=== PATIENT | female | born 2005 | race Caucasian/White ===

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

== ENCOUNTER 2023-01-03 21:52 | Emergency (ER) | payer OTHER ==
--- OUTSIDE RECORDS SUMMARY | 2023-01-03 22:02 | XMS REPORT | Continuity of Care Document ---
:2005 Author Organization [facility] t Address [address] [facility]. [address] [place] [address] Care Team Providers Name Role Phone Spring RIZVI, [facility] Primary Care Physician [phone] RODOLFO CASTILLO Attending Clinician Unavailable DEBORAH LEÓN Attending Clinician Unavailable GARRETT CONLEY Attending Clinician Unavailable GARRETT CONLEY Attending Clinician Unavailable SMITHA CAST Attending Clinician Unavailable Smitha Cast DO Attending Clinician SANYA TO Attending Clinician Unavailable Sanya To DO Attending Clinician Deborah Talley Attending Clinician Doctor Unassigned, [place] Attending Clinician Unavailable Katie HEALY Attending Clinician Unavailable Katie Danielson Attending Clinician HALLEY FREITAS Attending Clinician Unavailable Halley Freitas MD Attending Clinician Pob, [facility] Main Attending Clinician Unavailable Joy Baxter MD Attending Clinician YASMANY NATH Attending Clinician Unavailable Nurse, [facility] Attending Clinician Unavailable Yasmany Nath MD Attending Clinician Abel Frazier CRNA Attending Clinician Nitin Curiel MD Attending Clinician ANGELA HICKS Attending Clinician Unavailable Angela Hicks MD Attending Clinician Ultrasound, Ang-Mfm Attending Clinician Unavailable Ina Joya MD, Banerjee Attending Clinician [phone] INA JOYA, BANERJEE Attending Clinician Unavailable NEVAREZ, ELEANOR CAM Attending Clinician Unavailable Yoni RIZVI, Eleanor Cam Attending Clinician Lab, Ang - Db Attending Clinician Unavailable Omagcarinei RIVET PASSER, Vani Attending Clinician Tom KING, [place] Attending Clinician Unavailable Charles RIVET PASSERViky Treviño Attending Clinician Mauricio RIVET PASSERHo Treviño Attending Clinician HO MARTÍNEZ Attending Clinician Unavailable RONNI MORRELL Attending Clinician Unavailable Only, Ang Db Test Attending Clinician Unavailable Cale Bates MD Attending Clinician Ronni Morrell PA-C Attending Clinician Rubén Vizcaino Attending Clinician RUBÉN VIZCAINO Attending Clinician Unavailable 2, [facility] Attending Clinician Unavailable Moustapha Patton Attending Clinician Cookie Reid Attending Clinician Carlos Theodore MD Attending Clinician Joshua Kitchen MD Attending Clinician Scotty Farnsworth Attending Clinician Lab, Adc Fam Pob I Attending Clinician Unavailable Unknown, Attending Attending Clinician Unavailable UNKNOWN, ATTENDING Attending Clinician Unavailable Only, Adc Test Attending Clinician Unavailable JOY BAXTER Attending Clinician Unavailable Benjamin KING, Fátima Wright Attending Clinician Unavailable Dayday Vines Attending Clinician DAYDAY RIVERO Attending Clinician Unavailable ELEANOR NEVAREZ Admitting Clinician Unavailable Katie HEALY Admitting Clinician Unavailable YASMANY NATH Admitting Clinician Unavailable Yasmany Nath MD Admitting Clinician ANGELA HICKS Admitting Clinician Unavailable Angela Hicks MD Admitting Clinician Eleanor Nevarez MD Admitting Clinician Payers Payer Name Policy Type Policy Number Effective Date Expiration Date S matthias [facility] [id number] 2021 00:00:00 [employer] [place] [facility] [id number] 2020 OF STATE 00:00:00 [employer] [place] [id number] 2019 00:00:00 Problems Condition Condition Condition Status Onset Resolution Last Treating Co mments Source Name Details Category Date Date Treatment Clinician Date Abscess of Abscess of Disease Active U nivers Bartholin' Bartholin' 2-28 it y of s gland s gland 00:00: [place] [facility] BMI BMI Disease Active 2022- Univers 30.0-30.9, 30.0-30.9, 2-28 it y of adult adult 00:00: [place] [facility] Need for Need for Disease Active Unive rs vaccinatio vaccinatio 2-28 it y of n n 00:00: [place] [facility] Presence Presence Disease Active Unive rs of of 8-26 ity of subdermal subdermal 00:00: Marzena gil contracept contracept 00 Me dical chriss device chriss device Br anch BMI BMI Disease Active 2021-0 Univers 28.0-28.9, 28.0-28.9, 7-31 it y of adult adult 00:00: [place] [facility] BMI BMI Disease Active 2021-0 Univers 28.0-28.9, 28.0-28.9, 7-31 it y of adult adult 00:00: [place] [facility] Disease Active U nivers depression depression 7-29 it y of 00:00: [place] [facility] Encounter Encounter Disease Active Uni vers for for 7-12 ity of initial initial 00:00: [place] prescripti prescripti 00 Me dical on of on of [place] implantabl implantabl e e subdermal subdermal contracept contracept chriss chriss Vaginal Vaginal Disease Active Univers discharge discharge 7-12 ity of 00:00: [place] [facility] Liveborn Liveborn Disease Active Unive rs infant, of , of 6-14 it y of [place] born in born in [facility] by vaginal by vaginal delivery delivery Gestationa Gestationa Disease Active U nivers l l 6-13 ity of hypertensi hypertensi [place] on, Medical antepartum antepartum Br anch Low back Low back Disease Active Unive rs pain pain 5-18 ity of during during 00:: [place] , , 00 Me dical antepartum antepartum Br anch Pelvic Pelvic Disease Active Univers pressure pressure 5-08 ity of in in 00:: [place] , , 00 Me dical antepartum antepartum Br anch , third , third trimester trimester Anemia of Anemia of Disease Active Uni vers mother in mother in 5-08 it[place] , , [place] ante[place] antepartum 00 [facility] Supervisio Supervisio Disease Active U nivers n of other n of other 4-08 it y of normal normal 00:00: [place] 00 [facility] History of History of Disease Active U nivers chlamydia chlamydia 2-09 ity of 00:00: [place] [facility] COVID-19 COVID-19 Disease Active Unive rs affecting affecting 1-12 ity of 00:00: [place] in second in second 00 [facility] trimester trimester Bran ch 12 WK 12 WK Diagnosis Active 2020-112022-02-14 Mem oria PREG, PREG, 2-18 09:31:00 l CRAMPING CRAMPING 00:00: Arnulfo n Active 10/20/2021 [facility] [place] Vitamin D Vitamin D Disease Active Uni vers deficiency deficiency 8-24 it y of 00:00: [address] Edema Edema Disease Active Univers 8-11 ity of 00:00: [place] 00 [facility] Branch Edema Edema Disease Active Univers 8-11 ity of 00:00: [place] 00 [facility] Branch History of Past Illness Condition Condition Condition Status Onset Resolution Last Treating Co mments Source Name Details Category Date Date Treatment Clinician Date Unspecifie Unspecifi Problem 2020-112021-10-22 2021-10-22 Memoria d ed 2-18 23:10:23 23:10:23 l abdominal abdominal 21:24: Herm jose pain pain 00 10/20/2021 10/22/2021 [facility] [place] Allergies, Adverse Reactions, Alerts Allergy Allergy Status Severity Reaction(s) Onset Inactive Treating Comm ents Source Name Type Date Date Clinician SULFA Drug Active High Anaphylaxis Unive rs (SULFONA Class 4-04 ity of MIDE 00:00: [place] ANTIBIOT 00 Medical ICS) Branch Sulfa Propensi Active Anaphylaxis Uni vers (Sulfona ty to 4-04 ity of mide adverse 00:00: [place] Antibiot reaction 00 Medica l ics) s Branch Social History Social Habit Start Date Stop Date Quantity Comments Source History SDOH University o f Alcohol Std [place] Medical Drinks Branch History SDOH University o f Alcohol Binge [place] [facility] al Branch History SDOH University o f Alcohol Comment [place] Med ical Branch Exposure to 2022-12-21 2022-12-31 Not sure University of SARS-CoV-2 00:00:00 09:10:00 [facility] (event) Branch Alcohol intake 2022-12-31 2022-12-31 Lifetime University of 00:00:00 00:00:00 non-drinker [facility] (finding) Branch Tobacco use and 2022-06-28 2022-06-28 Smokeless tobacco Un iversity of exposure 00:00:00 00:00:00 non-user [place] [facility] History SDOH 2021-08-20 2021-08-20 1 University o f Alcohol Frequency 00:00:00 00:00:[facility] [place] Sex Assigned At [birth year] Universit y of 00:00:00 00:00:00 [facility] Smoking Status Start Date Stop Date Source Social History [facility] Medications Ordered Filled Start Stop Current Ordering Indication Dosage Frequency Signature Comments Components Source Medication Medication Date Date Medication? Clinician (SIG) Name Name acetaminoph Yes Take by Uni vers en (TYLENOL 2-28 mouth. ity of ORAL) 10:55: [place] [address] Medical Branch acetaminoph Yes Take by Uni vers en (TYLENOL 2-28 mouth. ity of ORAL) 10:55: [place] [address] Medical Branch IBUPROFEN 2022- No 1800mg Take 1,800 Univers ORAL 2-21 02-21 mg by ity of 08:49: 00:00 mouth [place] 07 :00 daily. Medical Branch IBUPROFEN 2022- No 1800mg Take 1,800 Univers ORAL 2-21 02-21 mg by ity of 08:49: 00:00 mouth [place] 07 :00 daily. Medical Branch amoxicillin 2022- No 1{tbl} 1 tablet, Univers -clavulanat 2-15 02-15 Oral, ity of e 14:45: 13:54 ONCE, 1 [place] (AUGMENTIN) 00 :00 dose, On Medi eric 875-125 mg Fri Branch per tablet 12/18/22 at 1 tablet 0845, Routine
Reason for Anti-Infec tive: Documented Infection< br>Documen cindy Infection Site: Pelvic
Duration of Therapy: 7 days HYDROcodone 2022- No 1{tbl} 1 tablet, Univers -acetaminop 2-15 -15 Oral, ity of hen (NORCO 13:30: 13:36 ONCE, 1 [place] 5) 5-325 mg 00 :00 dose, On Medi eric tablet 1 Wed Branch tablet 12/18/22 at 0730, MICHAEL amoxicillin Yes [id number] 1{tbl} Take 1 Univers -clavulanat 2-15 tablet by ity of e 875-125 00:00: mouth [place] mg per 00 every 12 Medical tablet (twelve) Branch hours. amoxicillin 2022-2022- No [id number] 1{tbl} Take 1 Univers -clavulanat 2-15 -28 tablet by it y of e 875-125 00:00: 00:00 mouth [place] mg per 00 :00 every 12 Medical tablet (twelve) Branch hours. amoxicillin 2022- No [id number] 1{tbl} Take 1 Univers -clavulanat 2-15 02-28 tablet by it y of e 875-125 00:00: 00:00 mouth [place] mg per 00 :00 every 12 Medical tablet (twelve) Branch hours. cefixime 2022- Yes [id number] 400mg Take 1 U nivers 400 mg 2-14 12-25 capsule by ity of capsule 00:00: 05:59 mouth in [place] 00 :00 the Medical morning Branch and 1 capsule in the evening. Do all this for 7 days. clindamycin 2022- Yes [id number] 300mg Take 2 Univers 150 mg 2-14 - capsules ity of capsule 00:00: 05:59 by mouth 4 [place] 00 :00 (four) Medical times Branch daily for 7 days. cefixime 2022- No [id number] 400mg Take 1 U nivers 400 mg 2-12-18 capsule by ity of capsule 00:00: 00:00 mouth in [place] 00 :00 the Medical morning Branch and 1 capsule in the evening. Do all this for 7 days. clindamycin 2022- No [id number] 300mg Take 2 Univers 150 mg 2-14 - capsules ity of capsule 00:00: 00:00 by mouth 4 [place] 00 :00 (four) Medical times [place] daily for 7 days. methylPREDN 2022-0 Yes [id number] Take by [employer] ISolone 2-13 [id number] mouth ity of (MEDROL, 00:00: SEE-INSTRU [place] ALEXANDRA,) 4 mg 00 CTIONS. Medica l tablets follow Branch package directions SERTraline 2022-0 Yes [id number] 25mg Take 1 Univers 25 mg 2-13 tablet by ity of tablet 00:00: mouth in [place] 00 the Medical morning. Branch methylPREDN 2022-0 Yes [id number] Take by Univers ISolone 2-13 [id number] mouth ity of (MEDROL, 00:00: SEE-INSTRU [place] ALEXANDRA,) 4 mg 00 CTIONS. Medica l tablets follow Branch package directions SERTraline 2022-0 Yes [id number] 25mg Take 1 Univers 25 mg 2-13 tablet by ity of tablet 00:00: mouth in [place] 00 the Medical morning. Branch methylPREDN 2022-0 Yes [id number] Take by Univers ISolone 2-13 [id number] mouth ity of (MEDROL, 00:00: SEE-INSTRU [place] ALEXANDRA,) 4 mg 00 CTIONS. Medica l tablets follow Branch package directions SERTraline 3-0 Yes [id number] 25mg Take 1 Univers 25 mg 2-13 tablet by ity of tablet 00:00: mouth in [place] the Medical morning. Branch methylPREDN 2022-0 Yes [id number] Take by Univers ISolone 12-16 [id number] mouth ity of (MEDROL, 00:00: SEE-INSTRU [place] ALEXANDRA,) 4 mg 00 CTIONS. Medica l tablets follow Branch package directions SERTraline 2022-0 Yes [id number] 25mg Take 1 Univers 25 mg 2-13 tablet by ity of tablet 00:00: mouth in [place] the Medical morning. Branch SERTraline 2022-0 Yes [id number] 25mg Take 1 Univers 25 mg 2-13 tablet by ity of tablet 00:00: mouth in [place] the Medical morning. Branch SERTraline 2022-0 Yes [id number] 25mg Take 1 Univers 25 mg 2-13 tablet by ity of tablet 00:00: mouth in [place] the Medical morning. Branch methylPREDN 2022-0 2023- No [id number] Take by Univers ISolone 12-16 [id number] mouth ity of (MEDROL, 00:00: 00:00 [place]IN[place] ALEXANDRA,) 4 mg 00 :00 CTIONS. Medica l tablets follow Branch package directions methylPREDN 2022-0 3- No [id number] Take by Univers ISolone 12-16 [id number] mouth ity of (MEDROL, 00:00: 00:00 [place]INSTRU [place] ALEXANDRA,) 4 mg 00 :00 CTIONS. Medica l tablets follow Branch package directions IBUPROFEN 3-0 Yes 1800mg Take 1,800 Univers ORAL 1-26 mg by ity of 16:57: mouth [place] 03 daily. Medical Branch IBUPROFEN 2023-0 Yes 1800mg Take 1,800 Univers ORAL 1-26 mg by ity of 16:57: mouth [place] 03 daily. Medical Branch IBUPROFEN 3-0 Yes 1800mg Take 1,800 Univers ORAL 1-26 mg by ity of 16:57: mouth [place] 03 daily. Medical Branch IBUPROFEN 2023-0 Yes 1800mg Take 1,800 Univers ORAL 1-26 mg by ity of 16:57: mouth [place] 03 daily. Medical Branch IBUPROFEN 2022-0 Yes 1800mg Take 1,800 Univers ORAL 1-26 mg by ity of 16:57: mouth [place] 03 daily. Medical Branch IBUPROFEN 2022-0 Yes 1800mg Take 1,800 Univers ORAL 1-26 mg by ity of 16:57: mouth [place] 03 daily. Medical Branch IBUPROFEN 2022-0 Yes 1800mg Take 1,800 Univers ORAL 1-26 mg by ity of 16:57: mouth [place] 03 daily. Medical Branch IBUPROFEN 2022-0 Yes 1800mg Take 1,800 Univers ORAL 1-26 mg by ity of 13:22: mouth [place] 11 daily. [facility] Branch IBUPROFEN 2022-0 Yes 1800mg Take 1,800 Univers ORAL 1-26 mg by ity of 13:22: mouth [place] 11 daily. Medical Branch predniSONE 2022-0 Yes [id number] 10mg Take 1 Univers 10 mg 1-26 [id number] tablet by ity of tablet 00:00: mouth in [place] 00 the Medical morning. Branch meloxicam 2022-0 Yes [id number] 7.5mg Take 1 Univers 7.5 mg 1-26 [id number] tablet by ity of tablet 00:00: mouth in [place] 00 the Medical morning. Branch predniSONE 2022-0 Yes [id number] 10mg Take 1 Univers 10 mg 1-26 [id number] tablet by ity of tablet 00:00: mouth in [place] 00 the Medical morning. Branch meloxicam 2022-0 Yes [id number] 7.5mg Take 1 Univers 7.5 mg 1-26 [id number] tablet by ity of tablet 00:00: mouth in [place] 00 the Medical morning. Branch predniSONE 3-0 Yes [id number] 10mg Take 1 Univers 10 mg 1-26 [id number] tablet by ity of tablet 00:00: mouth in [place] 00 the Medical morning. Branch meloxicam 2022-0 Yes [id number] 7.5mg Take 1 Univers 7.5 mg 1-26 [id number] tablet by ity of tablet 00:00: mouth in [place] 00 the Medical morning. Branch predniSONE 3-0 Yes [id number] 10mg Take 1 Univers 10 mg 1-26 [id number] tablet by ity of tablet 00:00: mouth in [place] 00 the Medical morning. Branch meloxicam 2023-0 Yes [id number] 7.5mg Take 1 Univers 7.5 mg - [id number] tablet by ity of tablet 00:00: mouth in [place] 00 the Medical morning. Branch meloxicam 0 Yes [id number] 7.5mg Take 1 Univers 7.5 mg - [id number] tablet by ity of tablet 00:00: mouth in [place] 00 the Medical morning. Branch meloxicam 2022-0 Yes [id number] 7.5mg Take 1 Univers 7.5 mg - [id number] tablet by ity of tablet 00:00: mouth in [place] 00 the Medical morning. Branch meloxicam 0 Yes [id number] 7.5mg Take 1 Univers 7.5 mg - [id number] tablet by ity of tablet 00:00: mouth in [place] 00 the Medical morning. Branch meloxicam Yes [id number] 7.5mg Take 1 Univers 7.5 mg - [id number] tablet by ity of tablet 00:00: mouth in [place] 00 the Medical morning. Branch meloxicam Yes [id number] 7.5mg Take 1 Univers 7.5 mg 11-28 [id number] tablet by ity of tablet 00:00: mouth in [place] 00 the Medical morning. Branch meloxicam 2022- No [id number] 7.5mg Take 1 Univers 7.5 mg 11-28 [id number] tablet by ity o f tablet 00:00: 00:00 mouth in [place] 00 :00 the Medical morning. Branch meloxicam 2022- No [id number] 7.5mg Take 1 Univers 7.5 mg 11-28 [id number] tablet by ity o f tablet 00:00: 00:00 mouth in [place] 00 :00 the Medical morning. Branch predniSONE 2022-2022- No [id number] 10mg Take 1 Univers 10 mg 11-28 [id number] tablet by ity of tablet 00:00: 00:00 mouth in [place] 00 :00 the Medical morning. Branch predniSONE 2022-2022- No [id number] 10mg Take 1 Univers 10 mg 11-28 [id number] tablet by ity of tablet 00:00: 00:00 mouth in [place] 00 :00 the Medical morning. Branch predniSONE 2022-0 2022- No 40mg 40 mg, Univ ers (DELTASONE) -11-23 Oral, ity of tablet 40 00:30: 00:37 ONCE, 1 [place] mg 00 :00 dose, On Medical Fri Branch 11/22/22 at 1830, MICHAEL predniSONE 2022-0 Yes [id number] 1 PO BID x Univers 20 mg 1-20 4 days ity of tablet 00:00: [place] 00 [facility] Branch predniSONE 2022-0 Yes [id number] 1 PO BID x Univers 20 mg 1-20 4 days ity of tablet 00:00: [place] 00 [facility] Branch predniSONE 2022-0 Yes [id number] 1 PO BID x Univers 20 mg 1-20 4 days ity of tablet 00:00: [place] 00 [facility] predniSONE 2022-0 Yes [id number] 1 PO BID x Univers 20 mg 1-20 4 days ity of tablet 00:00: [place] 00 [facility] predniSONE 2022-0 Yes [id number] 1 PO BID x Univers 20 mg 1-20 4 days ity of tablet 00:00: [place] 00 [facility] predniSONE 2022-0 2022- No [id number] 1 PO BID x Univers 20 mg 1-20 -13 4 days ity of tablet 00:00: 00:00 [place] 00 :00 [facility] predniSONE 2022-0 2022- No [id number] 1 PO BID x Univers 20 mg 1-20 - 4 days ity of tablet 00:00: 00:00 [place] 00 :00 [facility] ibuprofen 2022-0 Yes TAKE 1 Univer s 600 mg 1-16 TABLET BY ity of tablet 00:00: MOUTH 00 TWICE A Medical DAY Branch NEEDED ibuprofen 2022-0 Yes TAKE 1 Univer s 600 mg 1-16 TABLET BY ity of tablet 00:00: MOUTH 00 TWICE A Medical DAY Branch NEEDED iopamidol 2022-2022- No [id number] 78mL 78 mL, U nivers (ISOVUE -07 04- Intravenou ity o f 370-500 mL) 23:30: 22:45 s, ONCE, 1 [place] injection 00 :00 dose, On Medica l 78 mL 11/11/22 Branch at 1730, Routine TAKE 1 2022-0 No TABLET BY 1-09 MOUTH EVERY 00:00: DAY IN THE 00 MORNING SERTRALINE 2023-0 No HCL 25 MG 1-09 TABS 00:00: 00 TAKE 1 3-0 No 500 TABLET BY 1-08 MOUTH EVERY 00:00: 12 HOURS 00 FOR 7 DAYS SERTraline 2021-0 Yes [id number] 25mg Take 1 U nivers 25 mg 8-26 tablet by ity of tablet 00:00: mouth in [place] 00 the Medical morning. Branch SERTraline 2021-0 Yes [id number] 25mg Take 1 U nivers 25 mg 8-26 tablet by ity of tablet 00:00: mouth in [place] 00 the Medical morning. Branch SERTraline 2021-0 Yes [id number] 25mg Take 1 U nivers 25 mg 8-26 tablet by ity of tablet 00:00: mouth in [place] 00 the Medical morning. Branch SERTraline 2021-0 Yes [id number] 25mg Take 1 U nivers 25 mg 8-26 tablet by ity of tablet 00:00: mouth in [place] 00 the Medical morning. Branch SERTraline 2021-0 Yes [id number] 25mg Take 1 U nivers 25 mg 8-26 tablet by ity of tablet 00:00: mouth in [place] 00 the Medical morning. Branch SERTraline 2021-0 Yes [id number] 25mg Take 1 U nivers 25 mg 8-26 tablet by ity of tablet 00:00: mouth in [place] 00 the Medical morning. Branch SERTraline 2021-0 Yes [id number] 25mg Take 1 U nivers 25 mg 8-26 tablet by ity of tablet 00:00: mouth in [place] 00 the Medical morning. Branch SERTraline 2021-0 3- No [id number] 25mg Take 1 Univers 25 mg 8-26 01-26 tablet by ity of tablet 00:00: 00:00 mouth in [place] 00 :00 the Medical morning. Branch SERTraline 2021-0 3- No [id number] 25mg Take 1 Univers 25 mg 8-26 01-26 tablet by ity of tablet 00:00: 00:00 mouth in [place] 00 :00 the Medical morning. Branch etonogestre 2021-0 2- No [id number] 68mg Univers L 06-04 ity of (NEXPLANON) 18:15: 17:02 [place] implant 68 00 :00 Medical mg Branch etonogestre 2021- No [id number] 68mg 68 mg, Univers L 06-04 Subdermal, ity of (NEXPLANON) 18:15: 17:02 [place]CE, 1 [place] 68 00 :00 dose, On Medic al mg 06/04/22 Branch at 1315, Routine
Use approved by: [employer] etonogestre 2021- No [id number] 68mg Univers L 06-04 ity of (NEXPLANON) 18:15: 17:02 [place] implant 68 00 :00 Medical mg [place] etonogestre 2021- No [id number] 68mg 68 mg, Univers L 06-04 Subdermal, ity of (NEXPLANON) 18:15: 17:02 [place]CE, 1 [place] 00 :00 dose, On Medic al mg e 06/04/22 Branch at 1315, Routine
Use approved by: [employer] SERTraline Yes [id number] 25mg Take 1 U nivers 25 mg 7-29 tablet by ity of tablet 00:00: mouth in [place] 00 the Medical morning. [place] SERTraline Yes [id number] 25mg Take 1 U nivers 25 mg 7-29 tablet by ity of tablet 00:00: mouth in [place] 00 the Medical morning. Branch SERTraline Yes [id number] 25mg Take 1 U nivers 25 mg 7-29 tablet by ity of tablet 00:00: mouth in [place] 00 the Medical morning. Branch SERTraline 2021- No [id number] 25mg Take 1 Univers 25 mg 7-29 - tablet by ity of tablet 00:00: 00:00 mouth in [place] 00 :00 the Medical morning. [place] docusate 2021- No [id number] 200mg Take 2 Univers 100 mg 04-17 102 capsules ity of capsule 00:00: 00:00 by mouth [place] 00 :00 once daily Medical as needed Branch for Constipati on. ibuprofen 2021- No [id number] 600mg Take 1 Univers 600 mg 04-17 102 tablet by ity of tablet 00:00: 00:00 mouth [place] 00 :00 every 6 Medical (six) Branch hours as needed (Pain). Take with food or milk. docusate 2- No [id number] 200mg Take 2 Univers 100 mg 04-17 102 capsules ity of capsule 00:00: 00:00 by mouth [place] 00 :00 once daily Medical as needed Branch for Constipati on. ibuprofen 2021- No [id number] 600mg Take 1 Univers 600 mg 04-17 102 tablet by ity of tablet 00:00: 00:00 mouth [place] 00 :00 every 6 Medical (six) Branch hours as needed (Pain). Take with food or milk. ferrous Yes [id number] 325mg Take 1 Un sheldon sulfate 3-30 tablet by ity of (IRON, 00:00: mouth [place] FERROUS 00 every Medical SULFATE,) other day. Bran ch 325 mg (65 mg iron) tablet ferrous Yes [id number] 325mg Take 1 Un sheldon sulfate 3-30 tablet by ity of (IRON, 00:00: mouth [place] FERROUS 00 every Medical SULFATE,) other day. Bran ch 325 mg (65 mg iron) tablet ferrous Yes [id number] 325mg Take 1 Un sheldon sulfate 3-30 tablet by ity of (IRON, 00:00: mouth [place] FERROUS 00 every Medical SULFATE,) other day. Bran ch 325 mg (65 mg iron) tablet ferrous Yes [id number] 325mg Take 1 Un sheldon sulfate 3-30 tablet by ity of (IRON, 00:00: mouth [place] FERROUS 00 every Medical SULFATE,) other day. Bran ch 325 mg (65 mg iron) tablet ferrous Yes [id number] 325mg Take 1 Un sheldon sulfate 3-30 tablet by ity of (IRON, 00:00: mouth [place] FERROUS 00 every Medical SULFATE,) other day. Bran ch 325 mg (65 mg iron) tablet ferrous Yes [id number] 325mg Take 1 Un sheldon sulfate 3-30 tablet by ity of (IRON, 00:00: mouth [place] FERROUS 00 every Medical SULFATE,) other day. Bran ch 325 mg (65 mg iron) tablet ferrous Yes [id number] 325mg Take 1 Un sheldon sulfate 3-30 tablet by ity of (IRON, 00:00: mouth [place] FERROUS 00 every Medical SULFATE,) other day. Bran ch 325 mg (65 mg iron) tablet ferrous Yes [id number] 325mg Take 1 Un sheldon sulfate 3-30 tablet by ity of (IRON, 00:00: mouth [place] FERROUS 00 every Medical SULFATE,) other day. Bran ch 325 mg (65 mg iron) tablet ferrous Yes [id number] 325mg Take 1 Un sheldon sulfate 3-30 tablet by ity of (IRON, 00:00: mouth [place] FERROUS 00 every Medical SULFATE,) other day. Bran ch 325 mg (65 mg iron) tablet ferrous Yes [id number] 325mg Take 1 Un sheldon sulfate 3-30 tablet by ity of (IRON, 00:00: mouth [place] FERROUS 00 every Medical SULFATE,) other day. Bran ch 325 mg (65 mg iron) tablet ferrous 2022- No [id number] 325mg Take 1 U nivers sulfate 3-30 - tablet by ity of (IRON, 00:00: 00:00 mouth [place] FERROUS 00 :00 every Medical SULFATE,) other day. Bran ch 325 mg (65 mg iron) tablet ferrous 2022- No [id number] 325mg Take 1 U nivers sulfate 3-30 - tablet by ity of (IRON, 00:00: 00:00 mouth [place] FERROUS 00 :00 every Medical SULFATE,) other day. Bran ch 325 mg (65 mg iron) tablet ascorbic 2021- No [id number] 500mg Take 1 Univers acid, 3-02 07- tablet by ity of vitamin C, 00:00: 00:00 mouth [place] 500 mg 00 :00 every Medical tablet other day. Branch Take with iron ascorbic 2021- No [id number] 500mg Take 1 Univers acid, 3-30 - tablet by ity of vitamin C, 00:00: 00:00 mouth [place] 500 mg 00 :00 every Medical tablet other day. Branch Take with iron Potassium 2020-11 No Notes: Memori a Chloride 2-18 (Same as: l 20:25: K-Dur 20) [place] "Do Not Crush" Give with food and full glass of water For patients unable to swallow tablet, dissolve in one half glass of water. Allow about 2 minutes for the tablets to disintegra te. Stir before giving to prepare slurry and administer . Please exclude Patient s with feeding tube less than 14 [place] (Dobhoff, J-tube etc) and pediatric and patients. Potassium 2020-11 No Notes: Memori a Chloride 2-18 (Same as: l 20:25: K-Dur 20) [place] 00 "Do Not Crush" Give with food and full glass of water For patients unable to swallow tablet, dissolve in one half glass of water. Allow about 2 minutes for the tablets to disintegra te. Stir before giving to prepare slurry and administer . Please exclude Patient s with feeding tube less than 14 [place] (Dobhoff, J-tube etc) and pediatric and patients. Saline 2020-11 No Notes: Memoria Flush 0.9% 2-18 (Same as: l 19:24: BD [place] Posiflush) Saline 2020-11 No Notes: [facility] Flush 0.9% 2-18 (Same as: l 19:24: BD [place] Posiflush) 2020-11 Yes [id number] 1{tbl} Take 1 U nivers vit w/iron 0-18 tablet by ity of fumarate 00:00: mouth [place] and [place] 00 daily. Medical ( Branch VITAMIN WITH MINERALS) tablet 2020-11 Yes [id number] 1{tbl} Take 1 U nivers vit w/iron 0-18 tablet by ity of fumarate 00:00: mouth [place] and [place] 00 daily. Medical ( Branch VITAMIN WITH MINERALS) tablet 2020-11 Yes [id number] 1{tbl} Take 1 U nivers vit w/iron 0-18 tablet by ity of fumarate 00:00: mouth [place] and [place] 00 daily. Medical ( Branch VITAMIN WITH MINERALS) tablet 2020-11 Yes [id number] 1{tbl} Take 1 U nivers vit w/iron 0-18 tablet by ity of fumarate 00:00: mouth [place] and [place] 00 daily. Medical ( Branch VITAMIN WITH MINERALS) tablet 2020-11 Yes [id number] 1{tbl} Take 1 U nivers vit w/iron 0-18 tablet by ity of fumarate 00:00: mouth [place] and [place] 00 daily. Medical ( Branch VITAMIN WITH MINERALS) tablet 2020-11 Yes [id number] 1{tbl} Take 1 U nivers vit w/iron 0-18 tablet by ity of fumarate 00:00: mouth [place] and [place] 00 daily. Medical ( Branch VITAMIN WITH MINERALS) tablet 2020-11 Yes [id number] 1{tbl} Take 1 U nivers vit w/iron 0-18 tablet by ity of fumarate 00:00: mouth [place] and [place] 00 daily. Medical ( Branch VITAMIN WITH MINERALS) tablet 2020-11 Yes [id number] 1{tbl} Take 1 U nivers vit w/iron 0-18 tablet by ity of fumarate 00:00: mouth [place] and [place] 00 daily. Medical ( Branch VITAMIN WITH MINERALS) tablet 2020-11 Yes [id number] 1{tbl} Take 1 U nivers vit w/iron 0-18 tablet by ity of fumarate 00:00: mouth [place] and [place] 00 daily. Medical ( Branch VITAMIN WITH MINERALS) tablet 2020-11 Yes [id number] 1{tbl} Take 1 U nivers vit w/iron 0-18 tablet by ity of fumarate 00:00: mouth [place] and [place] 00 daily. Medical ( Branch VITAMIN WITH MINERALS) tablet 2020-11 202- No [id number] 1{tbl} Take 1 Univers vit w/iron 0-18 01-26 tablet by ity of fumarate 00:00: 00:00 mouth [place] and [place] 00 :00 daily. Medical ( Branch VITAMIN WITH MINERALS) tablet 2020-11 202- No [id number] 1{tbl} Take 1 Univers vit w/iron 0-18 01-26 tablet by ity of fumarate 00:00: 00:00 mouth [place] and [place] 00 :00 daily. Medical ( Branch VITAMIN WITH MINERALS) tablet Immunizations Ordered Immunization Filled Immunization Date Status Commen ts Source Name Name SARS-COV-2 COVID-19 2022-12-16 Completed Unive rsity of PFIZER TANG-SUCROSE 00:00:00 [place] [facility] VACCINE (CHAND TOP) Branch SARS-COV-2 COVID-19 2022-12-16 Completed Unive rsity of PFIZER TANG-SUCROSE 00:00:00 [place] [facility] VACCINE (CHAND TOP) Branch SARS-COV-2 COVID-19 2022-12-16 Completed Unive rsity of PFIZER TANG-SUCROSE 00:00:00 [place] [facility] VACCINE (CHAND TOP) Branch SARS-COV-2 COVID-19 2022-12-16 Completed Unive rsity of PFIZER TANG-SUCROSE 00:00:00 [place] [facility] VACCINE (CHAND TOP) Branch SARS-COV-2 COVID-19 2022-12-16 Completed Unive rsity of PFIZER TANG-SUCROSE 00:00:00 [place] [facility] VACCINE (CHAND TOP) Branch SARS-COV-2 COVID-19 2022-12-16 Completed Unive rsity of PFIZER TANG-SUCROSE 00:00:00 [facility] VACCINE (CHAND TOP) Branch Varicella 2022-11-28 Completed University of (varivax)(chicken 00:00:00 [place] [facility] pox) Branch Influenza Virus 2022-11-28 Completed Universit y of Vaccine Quad IM, 00:00:00 [place] [facility] Preserv and ABX Free Bran ch 6 MO-64 YRS SARS-COV-2 COVID-19 2022-11-28 Completed Unive rsity of TANG-SUCROSE VACCINE 00:00:00 [facility] 12 YRS+, BIVALENT Branch 0.3ML, IM, (PFIZER CHAND TOP BOOSTER) Meningococcal B, OMV 2022-11-28 Completed Univ ersity of 00:00:00 [facility] Branch Varicella 2022-11-28 Completed University of (varivax)(chicken 00:00:00 [place] [facility] pox) Branch Influenza Virus 2022-11-28 Completed Universit y of Vaccine Quad IM, 00:00:00 [place] [facility] Preserv and ABX Free Bran ch 6 MO-64 YRS SARS-COV-2 COVID-19 2022-11-28 Completed Unive rsity of TANG-SUCROSE VACCINE 00:00:00 [facility] 12 YRS+, BIVALENT Branch 0.3ML, IM, (PFIZER CHAND TOP BOOSTER) Meningococcal B, OMV 2022-11-28 Completed Univ ersity of 00:00:00 [facility] Branch Varicella 2022-11-28 Completed University of (varivax)(chicken 00:00:00 [place] [facility] pox) Branch Influenza Virus 2022-11-28 Completed Universit y of Vaccine Quad IM, 00:00:00 [place] [facility] Preserv and ABX Free Bran ch 6 MO-64 YRS SARS-COV-2 COVID-19 2022-11-28 Completed Unive rsity of TANG-SUCROSE VACCINE 00:00:00 [facility] 12 YRS+, BIVALENT Branch 0.3ML, IM, (PFIZER CHAND TOP BOOSTER) Meningococcal B, OMV 2022-11-28 Completed Univ ersity of 00:00:00 [facility] Varicella 2022-11-28 Completed University of (varivax)(chicken 00:00:00 [place] [facility] pox) Branch Influenza Virus 2022-11-28 Completed Universit y of Vaccine Quad IM, 00:00:00 [place] [facility] Preserv and ABX Free Bran ch 6 MO-64 YRS SARS-COV-2 COVID-19 2022-11-28 Completed Unive rsity of TANG-SUCROSE VACCINE 00:00:00 [facility] 12 YRS+, BIVALENT Branch 0.3ML, IM, (PFIZER CHAND TOP BOOSTER) Meningococcal B, OMV 2022-11-28 Completed Univ ersity of 00:00:00 [facility] Varicella 2022-11-28 Completed University of (varivax)(chicken 00:00:00 [facility] edical pox) Branch Influenza Virus 2022-11-28 Completed Universit y of Vaccine Quad IM, 00:00:00 [facility] dical Preserv and ABX Free Bran ch 6 MO-64 YRS SARS-COV-2 COVID-19 2022-11-28 Completed Unive rsity of TANG-SUCROSE VACCINE 00:00:00 [facility] 12 YRS+, BIVALENT Branch 0.3ML, IM, (PFIZER CHAND TOP BOOSTER) Meningococcal B, OMV 2022-11-28 Completed Univ ersity of 00:00:00 [facility] Varicella 2022-11-28 Completed University of (varivax)(chicken 00:00:00 [facility] edical pox) Branch Influenza Virus 2022-11-28 Completed Universit y of Vaccine Quad IM, 00:00:00 [facility] dical Preserv and ABX Free Bran ch 6 MO-64 YRS SARS-COV-2 COVID-19 2022-11-28 Completed Unive rsity of TANG-SUCROSE VACCINE 00:00:00 [facility] 12 YRS+, BIVALENT Branch 0.3ML, IM, (PFIZER CHAND TOP BOOSTER) Meningococcal B, OMV 2022-11-28 Completed Univ ersity of 00:00:00 [facility] Varicella 2022-11-28 Completed University of (varivax)(chicken 00:00:00 [place] [facility] pox) Branch Influenza Virus 2022-11-28 Completed Universit y of Vaccine Quad IM, 00:00:00 [place] [facility] Preserv and ABX Free Bran ch 6 MO-64 YRS SARS-COV-2 COVID-19 2022-11-28 Completed Unive rsity of TANG-SUCROSE VACCINE 00:00:00 [facility] 12 YRS+, BIVALENT Branch 0.3ML, IM, (PFIZER CHAND TOP BOOSTER) Meningococcal B, OMV 2022-11-28 Completed Univ ersity of 00:00:00 [facility] Varicella 2022-11-28 Completed University of (varivax)(chicken 00:00:00 [facility] edical pox) Branch Influenza Virus 2022-11-28 Completed Universit y of Vaccine Quad IM, 00:00:00 [facility] dical Preserv and ABX Free Bran ch 6 MO-64 YRS SARS-COV-2 COVID-19 2022-11-28 Completed Unive rsity of TANG-SUCROSE VACCINE 00:00:00 [facility] 12 YRS+, BIVALENT Branch 0.3ML, IM, (PFIZER CHAND TOP BOOSTER) Meningococcal B, OMV 2022-11-28 Completed Univ ersity of 00:00:00 [facility] Varicella 2022-11-28 Completed University of (varivax)(chicken 00:00:00 [facility] edical pox) Branch Influenza Virus 2022-11-28 Completed Universit y of Vaccine Quad IM, 00:00:00 [facility] dical Preserv and ABX Free Bran ch 6 MO-64 YRS SARS-COV-2 COVID-19 2022-11-28 Completed Unive rsity of TANG-SUCROSE VACCINE 00:00:00 [facility] 12 YRS+, BIVALENT Branch 0.3ML, IM, (PFIZER CHAND TOP BOOSTER) Meningococcal B, OMV 2022-11-28 Completed Univ ersity of 00:00:00 [facility] Varicella 2022-11-28 Completed University of (varivax)(chicken 00:00:00 [facility] edical pox) Branch Influenza Virus 2022-11-28 Completed Universit y of Vaccine Quad IM, 00:00:00 [facility] dical Preserv and ABX Free Bran ch 6 MO-64 YRS SARS-COV-2 COVID-19 2022-11-28 Completed Unive rsity of TANG-SUCROSE VACCINE 00:00:00 [facility]+, BIVALENT Branch 0.3ML, IM, (PFIZER CHAND TOP BOOSTER) Meningococcal B, OMV 2022-11-28 Completed Univ ersity of 00:00:00 [facility] Branch Varicella 2022-11-28 Completed University of (varivax)(chicken 00:00:00 [place] [facility] pox) Branch Influenza Virus 2022-11-28 Completed Universit y of Vaccine Quad IM, 00:00:00 [place] [facility] Preserv and ABX Free Bran ch 6 MO-64 YRS SARS-COV-2 COVID-19 2022-11-28 Completed Unive rsity of TANG-SUCROSE VACCINE 00:00:00 [facility] 12 YRS+, BIVALENT Branch 0.3ML, IM, (PFIZER CHAND TOP BOOSTER) Meningococcal B, OMV 2022-11-28 Completed Univ ersity of 00:00:00 [facility] TDAP 2022-02-08 Completed University of 00:00:00 [facility] TDAP 2022-02-08 Completed University of 00:00:00 [facility] TDAP 2022-02-08 Completed University of 00:00:00 [facility] TDAP 2022-02-08 Completed University of 00:00:00 [facility] TDAP 2022-02-08 Completed University of 00:00:00 [facility] TDAP 2022-02-08 Completed University of 00:00:00 [facility] TDAP 2022-02-08 Completed University of 00:00:00 [facility] TDAP 2022-02-08 Completed University of 00:00:00 [facility] TDAP 2022-02-08 Completed University of 00:00:00 [facility] TDAP 2022-02-08 Completed University of 00:00:00 [facility] TDAP 2022-02-08 Completed University of 00:00:00 [facility] TDAP 2022-02-08 Completed University of 00:00:00 [facility] TDAP 2022-02-08 Completed University of 00:00:00 [facility] TDAP 2022-02-08 Completed University of 00:00:00 [facility] TDAP 2022-02-08 Completed University of 00:00:00 [facility] TDAP 2022-02-08 Completed University of 00:00:00 [facility] TDAP 2022-02-08 Completed University of 00:00:00 [facility] TDAP 2022-02-08 Completed University of 00:00:00 [facility] TDAP 2022-02-08 Completed University of 00:00:00 [facility] TDAP 2022-02-08 Completed University of 00:00:00 [facility] TDAP 2022-02-08 Completed University of 00:00:00 [facility] Meningococcal 2016-06-14 Completed University of Polysaccharide 00:00:00 [place] [facility] (groups A, C, Y and Branc h W-135) conjugate vaccine (MCV4P) MMR 2016-06-14 Completed University of 00:00:00 [facility] TDAP 2016-06-14 Completed University of 00:00:00 [facility] Varicella 2016-06-14 Completed University of (varivax)(chicken 00:00:00 [place] [facility] pox) Branch HPV9 2016-06-14 Completed University of 00:00:00 [facility] Meningococcal 2016-06-14 Completed University of Polysaccharide 00:00:00 [place] [facility] (groups A, C, Y and Branc h W-135) conjugate vaccine (MCV4P) MMR 2016-06-14 Completed University of 00:00:00 [facility] TDAP 2016-06-14 Completed University of 00:00:00 [facility] Varicella 2016-06-14 Completed University of (varivax)(chicken 00:00:00 [place] [facility] pox) Branch HPV9 2016-06-14 Completed University of 00:00:00 [facility] Meningococcal 2016-06-14 Completed University of Polysaccharide 00:00:00 [place] [facility] (groups A, C, Y and Branc h W-135) conjugate vaccine (MCV4P) MMR 2016-06-14 Completed University of 00:00:00 [facility] TDAP 2016-06-14 Completed University of 00:00:00 [facility] Varicella 2016-06-14 Completed University of (varivax)(chicken 00:00:00 [place] [facility] pox) Branch HPV9 2016-06-14 Completed University of 00:00:00 [facility] Meningococcal 2016-06-14 Completed University of Polysaccharide 00:00:00 [place] [facility] (groups A, C, Y and Branc h W-135) conjugate vaccine (MCV4P) MMR 2016-06-14 Completed University of 00:00:00 [facility] TDAP 2016-06-14 Completed University of 00:00:00 [facility] Varicella 2016-06-14 Completed University of (varivax)(chicken 00:00:00 [place] [facility] pox) Branch HPV9 2016-06-14 Completed University of 00:00:00 [facility] Meningococcal 2016-06-14 Completed University of Polysaccharide 00:00:00 [place] [facility] (groups A, C, Y and Branc h W-135) conjugate vaccine (MCV4P) MMR 2016-06-14 Completed University of 00:00:00 [facility] TDAP 2016-06-14 Completed University of 00:00:00 [facility] Varicella 2016-06-14 Completed University of (varivax)(chicken 00:00:00 [place] [facility] pox) Branch HPV9 2016-06-14 Completed University of 00:00:00 [facility] Meningococcal 2016-06-14 Completed University of Polysaccharide 00:00:00 [place] [facility] (groups A, C, Y and Branc h W-135) conjugate vaccine (MCV4P) MMR 2016-06-14 Completed University of 00:00:00 [facility] TDAP 2016-06-14 Completed University of 00:00:00 [facility] Varicella 2016-06-14 Completed University of (varivax)(chicken 00:00:00 [place] [facility] pox) Branch HPV9 2016-06-14 Completed University of 00:00:00 [facility] Meningococcal 2016-06-14 Completed University of Polysaccharide 00:00:00 [place] [facility] (groups A, C, Y and Branc h W-135) conjugate vaccine (MCV4P) MMR 2016-06-14 Completed University of 00:00:00 [facility] TDAP 2016-06-14 Completed University of 00:00:00 [facility] Varicella 2016-06-14 Completed University of (varivax)(chicken 00:00:00 [place] [facility] pox) Branch HPV9 2016-06-14 Completed University of 00:00:00 [facility] Meningococcal 2016-06-14 Completed University of Polysaccharide 00:00:00 [place] [facility] (groups A, C, Y and Branc h W-135) conjugate vaccine (MCV4P) MMR 2016-06-14 Completed University of 00:00:00 [facility] TDAP 2016-06-14 Completed University of 00:00:00 [facility] Varicella 2016-06-14 Completed University of (varivax)(chicken 00:00:00 [place] [facility] pox) Branch HPV9 2016-06-14 Completed University of 00:00:00 [facility] Meningococcal 2016-06-14 Completed University of Polysaccharide 00:00:00 [place] [facility] (groups A, C, Y and Branc h W-135) conjugate vaccine (MCV4P) MMR 2016-06-14 Completed University of 00:00:00 [facility] TDAP 2016-06-14 Completed University of 00:00:00 [facility] Varicella 2016-06-14 Completed University of (varivax)(chicken 00:00:00 [place] [facility] pox) Branch HPV9 2016-06-14 Completed University of 00:00:00 [facility] Meningococcal 2016-06-14 Completed University of Polysaccharide 00:00:00 [place] [facility] (groups A, C, Y and Branc h W-135) conjugate vaccine (MCV4P) MMR 2016-06-14 Completed University of 00:00:00 [facility] TDAP 2016-06-14 Completed University of 00:00:00 [facility] Varicella 2016-06-14 Completed University of (varivax)(chicken 00:00:00 [place] [facility] pox) Branch HPV9 2016-06-14 Completed University of 00:00:00 [facility] Meningococcal 2016-06-14 Completed University of Polysaccharide 00:00:00 [place] [facility] (groups A, C, Y and Branc h W-135) conjugate vaccine (MCV4P) MMR 2016-06-14 Completed University of 00:00:00 [facility] TDAP 2016-06-14 Completed University of 00:00:00 [facility] Varicella 2016-06-14 Completed University of (varivax)(chicken 00:00:00 [place] [facility] pox) Branch HPV9 2016-06-14 Completed University of 00:00:00 [facility] DTaP, Unspecified 2006-12-23 Completed Univers ity of Formulation 00:00:00 [facility] HEPA-PEDS 2006-12-23 Completed University of 00:00:00 [facility] IPV 2006-12-23 Completed University of 00:00:00 [facility] DTaP, Unspecified 2006-12-23 Completed Univers ity of Formulation 00:00:00 [facility] HEPA-PEDS 2006-12-23 Completed University of 00:00:00 [facility] IPV 2006-12-23 Completed University of 00:00:00 [facility] DTaP, Unspecified 2006-12-23 Completed Univers ity of Formulation 00:00:00 [facility] HEPA-PEDS 2006-12-23 Completed University of 00:00:00 [facility] IPV 2006-12-23 Completed University of 00:00:00 [facility] DTaP, Unspecified 2006-12-23 Completed Univers ity of Formulation 00:00:00 [facility] HEPA-PEDS 2006-12-23 Completed University of 00:00:00 [facility] IPV 2006-12-23 Completed University of 00:00:00 [facility] DTaP, Unspecified 2006-12-23 Completed Univers ity of Formulation 00:00:00 [facility] HEP-PEDS 2006-12-23 Completed University of 00:00:00 [facility] IPV 2006-12-23 Completed University of 00:00:00 [facility] DTaP, Unspecified 2006-12-23 Completed Univers ity of Formulation 00:00:00 [facility] HEP-PEDS 2006-12-23 Completed University of 00:00:00 [facility] IPV 2006-12-23 Completed University of 00:00:00 [facility] DTaP, Unspecified 2006-12-23 Completed Univers ity of Formulation 00:00:00 [facility] HEPA-PEDS 2006-12-23 Completed University of 00:00:00 [facility] IPV 2006-12-23 Completed University of 00:00:00 [facility] DTaP, Unspecified 2006-12-23 Completed Univers ity of Formulation 00:00:00 [facility] HEPA-PEDS 2006-12-23 Completed University of 00:00:00 [facility] IPV 2006-12-23 Completed University of 00:00:00 [facility] DTaP, Unspecified 2006-12-23 Completed Univers ity of Formulation 00:00:00 [facility] HEPA-PEDS 2006-12-23 Completed University of 00:00:00 [facility] IPV 2006-12-23 Completed University of 00:00:00 [place] [facility] DTaP, Unspecified 2006-12-23 Completed Univers ity of Formulation 00:00:00 [facility] HEPA-PEDS 2006-12-23 Completed University of 00:00:00 [facility] IPV 2006-12-23 Completed University of 00:00:00 [facility] Branch DTaP, Unspecified 2006-12-23 Completed Univers ity of Formulation 00:00:00 [facility] HEPA-PEDS 2006-12-23 Completed University of 00:00:00 [facility] IPV 2006-12-23 Completed University of 00:00:00 [facility] Branch DTaP, Unspecified 2006-08-20 Completed Univers ity of Formulation 00:00:00 [facility] Hep B, Adol or Pedi 2006-08-20 Completed Unive rsity of Dosage 00:00:00 [facility] IPV 2006-08-20 Completed University of 00:00:00 [facility] DTaP, Unspecified 2006-08-20 Completed Univers ity of Formulation 00:00:00 [facility] Hep B, Adol or Pedi 2006-08-20 Completed Unive rsity of Dosage 00:00:00 [facility] IPV 2006-08-20 Completed University of 00:00:00 [facility] Branch DTaP, Unspecified 2006-08-20 Completed Univers ity of Formulation 00:00:00 [facility] Branch Hep B, Adol or Pedi 2006-08-20 Completed Unive rsity of Dosage 00:00:00 [facility] IPV 2006-08-20 Completed University of 00:00:00 [facility] Branch DTaP, Unspecified 2006-08-20 Completed Univers ity of Formulation 00:00:00 [facility] Branch Hep B, Adol or Pedi 2006-08-20 Completed Unive rsity of Dosage 00:00:00 [facility] IPV 2006-08-20 Completed University of 00:00:00 [facility] Branch DTaP, Unspecified 2006-08-20 Completed Univers ity of Formulation 00:00:00 [facility] Branch Hep B, Adol or Pedi 2006-08-20 Completed Unive rsity of Dosage 00:00:00 [facility] IPV 2006-08-20 Completed University of 00:00:00 [facility] Branch DTaP, Unspecified 2006-08-20 Completed Univers ity of Formulation 00:00:00 [facility] Branch Hep B, Adol or Pedi 2006-08-20 Completed Unive rsity of Dosage 00:00:00 [facility] IPV 2006-08-20 Completed University of 00:00:00 [facility] Branch DTaP, Unspecified 2006-08-20 Completed Univers ity of Formulation 00:00:00 [facility] Branch Hep B, Adol or Pedi 2006-08-20 Completed Unive rsity of Dosage 00:00:00 [facility] IPV 2006-08-20 Completed University of 00:00:00 [facility] Branch DTaP, Unspecified 2006-08-20 Completed Univers ity of Formulation 00:00:00 [facility] Hep B, Adol or Pedi 2006-08-20 Completed Unive rsity of Dosage 00:00:00 [facility] IPV 2006-08-20 Completed University of 00:00:00 [facility] DTaP, Unspecified 2006-08-20 Completed Univers ity of Formulation 00:00:00 [facility] Hep B, Adol or Pedi 2006-08-20 Completed Unive rsity of Dosage 00:00:00 [facility] IPV 2006-08-20 Completed University of 00:00:00 [facility] DTaP, Unspecified 2006-08-20 Completed Univers ity of Formulation 00:00:00 [facility] Hep B, Adol or Pedi 2006-08-20 Completed Unive rsity of Dosage 00:00:00 [facility] IPV 2006-08-20 Completed University of 00:00:00 [facility] DTaP, Unspecified 2006-08-20 Completed Univers ity of Formulation 00:00:00 [facility] Hep B, Adol or Pedi 2006-08-20 Completed Unive rsity of Dosage 00:00:00 [facility] IPV 2006-08-20 Completed University of 00:00:00 [facility] DTaP, Unspecified 2006-06-19 Completed Univers ity of Formulation 00:00:00 [facility] HEPATITIS A 2006-06-19 Completed University of 00:00:00 [facility] Hep B, Adol or Pedi 2006-06-19 Completed Unive rsity of Dosage 00:00:00 [facility] HIB 4 Dose Schedule 2006-06-19 Completed Unive rsity of 00:00:00 [facility] Proquad 2006-06-19 Completed University of (MMR/VARICELLA) 00:00:00 [place] [facility] Pneumococcal 7 2006-06-19 Completed University of Conjugate, PCV7 00:00:00 [facility] (Prevnar7) Branch IPV 2006-06-19 Completed University of 00:00:00 [facility] DTaP, Unspecified 2006-06-19 Completed Univers ity of Formulation 00:00:00 [facility] HEPATITIS A 2006-06-19 Completed University of 00:00:00 [facility] Hep B, Adol or Pedi 2006-06-19 Completed Unive rsity of Dosage 00:00:00 [facility] HIB 4 Dose Schedule 2006-06-19 Completed Unive rsity of 00:00:00 [facility] Proquad 2006-06-19 Completed University of (MMR/VARICELLA) 00:00:00 [facility] Branch Pneumococcal 7 2006-06-19 Completed University of Conjugate, PCV7 00:00:00 [facility] (Prevnar7) Branch IPV 2006-06-19 Completed University of 00:00:00 [facility] DTaP, Unspecified 2006-06-19 Completed Univers ity of Formulation 00:00:00 [facility] HEPATITIS A 2006-06-19 Completed University of 00:00:00 [facility] Hep B, Adol or Pedi 2006-06-19 Completed Unive rsity of Dosage 00:00:00 [facility] HIB 4 Dose Schedule 2006-06-19 Completed Unive rsity of 00:00:00 [facility] Proquad 2006-06-19 Completed University of (MMR/VARICELLA) 00:00:00 [facility] Pneumococcal 7 2006-06-19 Completed University of Conjugate, PCV7 00:00:00 [facility] (Prevnar7) Branch IPV 2006-06-19 Completed University of 00:00:00 [facility] DTaP, Unspecified 2006-06-19 Completed Univers ity of Formulation 00:00:00 [facility] HEPATITIS A 2006-06-19 Completed University of 00:00:00 [facility] Hep B, Adol or Pedi 2006-06-19 Completed Unive rsity of Dosage 00:00:00 [facility] HIB 4 Dose Schedule 2006-06-19 Completed Unive rsity of 00:00:00 [facility] Proquad 2006-06-19 Completed University of (MMR/VARICELLA) 00:00:00 [facility] Pneumococcal 7 2006-06-19 Completed University of Conjugate, PCV7 00:00:00 [facility] ica (Prevnar7) Branch IPV 2006-06-19 Completed University of 00:00:00 [facility] DTaP, Unspecified 2006-06-19 Completed Univers ity of Formulation 00:00:00 [facility] HEPATITIS A 2006-06-19 Completed University of 00:00:00 [facility] Hep B, Adol or Pedi 2006-06-19 Completed Unive rsity of Dosage 00:00:00 [facility] HIB 4 Dose Schedule 2006-06-19 Completed Unive rsity of 00:00:00 [facility] Proquad 2006-06-19 Completed University of (MMR/VARICELLA) 00:00:00 [facility] Pneumococcal 7 2006-06-19 Completed University of Conjugate, PCV7 00:00:00 [facility] (Prevnar7) Branch IPV 2006-06-19 Completed University of 00:00:00 [facility] DTaP, Unspecified 2006-06-19 Completed Univers ity of Formulation 00:00:00 [facility] HEPATITIS A 2006-06-19 Completed University of 00:00:00 [facility] Hep B, Adol or Pedi 2006-06-19 Completed Unive rsity of Dosage 00:00:00 [facility] HIB 4 Dose Schedule 2006-06-19 Completed Unive rsity of 00:00:00 [facility] Proquad 2006-06-19 Completed University of (MMR/VARICELLA) 00:00:00 [facility] Pneumococcal 7 2006-06-19 Completed University of Conjugate, PCV7 00:00:00 [facility] (Prevnar7) Branch IPV 2006-06-19 Completed University of 00:00:00 [facility] DTaP, Unspecified 2006-06-19 Completed Univers ity of Formulation 00:00:00 [facility] HEPATITIS A 2006-06-19 Completed University of 00:00:00 [facility] Hep B, Adol or Pedi 2006-06-19 Completed Unive rsity of Dosage 00:00:00 [facility] HIB 4 Dose Schedule 2006-06-19 Completed Unive rsity of 00:00:00 [facility] Proquad 2006-06-19 Completed University of (MMR/VARICELLA) 00:00:00 [facility] Pneumococcal 7 2006-06-19 Completed University of Conjugate, PCV7 00:00:00 [facility] (Prevnar7) Branch IPV 2006-06-19 Completed University of 00:00:00 [facility] DTaP, Unspecified 2006-06-19 Completed Univers ity of Formulation 00:00:00 [facility] HEPATITIS A 2006-06-19 Completed University of 00:00:00 [facility] Hep B, Adol or Pedi 2006-06-19 Completed Unive rsity of Dosage 00:00:00 [facility] HIB 4 Dose Schedule 2006-06-19 Completed Unive rsity of 00:00:00 [facility] Proquad 2006-06-19 Completed University of (MMR/VARICELLA) 00:00:00 [facility] Pneumococcal 7 2006-06-19 Completed University of Conjugate, PCV7 00:00:00 [facility] (Prevnar7) Branch IPV 2006-06-19 Completed University of 00:00:00 [facility] DTaP, Unspecified 2006-06-19 Completed Univers ity of Formulation 00:00:00 [facility] HEPATITIS A 2006-06-19 Completed University of 00:00:00 [facility] Hep B, Adol or Pedi 2006-06-19 Completed Unive rsity of Dosage 00:00:00 [facility] HIB 4 Dose Schedule 2006-06-19 Completed Unive rsity of 00:00:00 [facility] Proquad 2006-06-19 Completed University of (MMR/VARICELLA) 00:00:00 [facility] Pneumococcal 7 2006-06-19 Completed University of Conjugate, PCV7 00:00:00 [facility] (Prevnar7) Branch IPV 2006-06-19 Completed University of 00:00:00 [facility] DTaP, Unspecified 2006-06-19 Completed Univers ity of Formulation 00:00:00 [facility] HEPATITIS A 2006-06-19 Completed University of 00:00:00 [facility] Hep B, Adol or Pedi 2006-06-19 Completed Unive rsity of Dosage 00:00:00 [facility] HIB 4 Dose Schedule 2006-06-19 Completed Unive rs[facility] University of (MMR/VARICELLA) 00:00:00 [facility] Pneumococcal 7 2006-06-19 Completed University of Conjugate, PCV7 00:00:00 [facility] ica (Prevnar7) Branch IPV 2006-06-19 Completed University of 00:00:00 [facility] DTaP, Unspecified 2006-06-19 Completed Univers ity of Formulation 00:00:00 [facility] HEPATITIS A 2006-06-19 Completed University of 00:00:00 [facility] Hep B, Adol or Pedi 2006-06-19 Completed Unive rsity of Dosage 00:00:00 [facility] HIB 4 Dose Schedule 2006-06-19 Completed Unive rsity of 00:00:00 [facility] Proquad 2006-06-19 Completed University of (MMR/VARICELLA) 00:00:00 [facility] Pneumococcal 7 2006-06-19 Completed University of Conjugate, PCV7 00:00:00 [facility] (Prevnar7) Branch IPV 2006-06-19 Completed University of 00:00:00 [facility] Hep B, Adol or Pedi 2003 Completed Unive rsity of Dosage 00:00:00 [facility] Hep B, Adol or Pedi 2003 Completed Unive rsity of Dosage 00:00:00 [facility] Hep B, Adol or Pedi 2003 Completed Unive rsity of Dosage 00:00:00 [facility] Hep B, Adol or Pedi 2003 Completed Unive rsity of Dosage 00:00:00 [facility] Hep B, Adol or Pedi 2003 Completed Unive rsity of Dosage 00:00:00 [facility] Hep B, Adol or Pedi 2003 Completed Unive rsity of Dosage 00:00:00 [facility] Hep B, Adol or Pedi 2003 Completed Unive rsity of Dosage 00:00:00 [facility] Hep B, Adol or Pedi 2003 Completed Unive rsity of Dosage 00:00:00 [facility] Hep B, Adol or Pedi 2003 Completed Unive rsity of Dosage 00:00:00 [facility] Hep B, Adol or Pedi 2003 Completed Unive rsity of Dosage 00:00:00 [facility] Hep B, Adol or Pedi 2003 Completed Unive rsity of Dosage 00:00:00 [facility] Vital Signs Vital Name Observation Time Observation Value Comments Source Systolic blood 2022-12-31 117 mm[Hg] University of pressure 16:54:00 [facility] Branch Diastolic blood 2022-12-31 75 mm[Hg] University o f pressure 16:54:00 [facility] Heart rate 2022-12-31 87 /min University of 16:54:00 [facility] Respiratory rate 2022-12-31 18 /min University of 16:54:00 [facility] Body height 2022-12-31 162.6 cm University of 16:54:00 [facility] Body weight 2022-12-31 80.287 kg University of 16:54:00 [facility] BMI 2022-12-31 30.38 kg/m2 University of 16:54:00 [facility] Systolic blood 2022-12-18 150 mm[Hg] University of pressure 13:39:37 [facility] Diastolic blood 2022-12-18 70 mm[Hg] University o f pressure 13:39:37 [facility] Heart rate 2022-12-18 118 /min University of 13:39:37 [facility] Body temperature 2022-12-18 38.72 Tonya University of 13:39:37 [facility] Respiratory rate 2022-12-18 14 /min University of 13:39:37 [facility] Body height 2022-12-18 162.6 cm University of 12:42:00 [facility] Body weight 2022-12-18 82.101 kg University of 12:42:00 [facility] BMI 2022-12-18 31.07 kg/m2 University of 12:42:00 [facility] Oxygen saturation 2022-12-18 100 /min University in Arterial blood 12:42:00 [facility] by Pulse oximetry Branch Systolic blood 2022-12-17 138 mm[Hg] University of pressure 19:07:00 [facility] Diastolic blood 2022-12-17 93 mm[Hg] University o f pressure 19:07:00 [facility] Heart rate 2022-12-17 127 /min Patient states University of 19:07:00 that her heart [facility] rate normally Branch runs in the 120's Body temperature 2022-12-17 37.72 Tonya University of 19:07:00 [facility] Respiratory rate 2022-12-17 18 /min University of 19:07:00 [facility] Branch Body height 2022-12-17 162.6 cm University of 19:07:00 [facility] Branch Body weight 2022-12-17 81.647 kg University of 19:07:00 [facility] BMI 2022-12-17 30.90 kg/m2 University of 19:07:00 [facility] Oxygen saturation 2022-12-17 98 /min University of in Arterial blood 19:07:00 [facility] P[facility] Systolic blood 2022-12-16 125 mm[Hg] University of pressure 19:37:00 [facility] Diastolic blood 2022-12-16 80 mm[Hg] University o f pressure 19:37:00 [facility] Heart rate 2022-12-16 117 /min University of 19:37:00 [facility] Body temperature 2022-12-16 37.06 Tonya University of :37:00 [facility] Branch Respiratory rate 2022-12-16 18 /min University of :37:00 [facility] Body height 2022-12-16 163.2 cm University of :37:00 [facility] Body weight 2022-12-16 82.101 kg University of :37:00 [facility] BMI 2022-12-16 30.83 kg/m2 University of :37:00 [facility] Oxygen saturation 2022-12-16 97 /min University of in Arterial blood 19:37:00 [facility] by Pulse oximetry Branch Systolic blood 2022-11-28 114 mm[Hg] University of pressure 19:19:00 [facility] Branch Diastolic blood 2022-11-28 65 mm[Hg] University o f pressure 19:19:00 [facility] Branch Heart rate 2022-11-28 104 /min University of 19:19:00 [facility] Body temperature 2022-11-28 37.06 Tonya University of 19:19:00 [facility] Branch Respiratory rate 2022-11-28 18 /min University of 19:19:00 [facility] Branch Body height 2022-11-28 163.2 cm University of 19:19:00 [facility] Body weight 2022-11-28 84.233 kg University of 19:19:00 [facility] BMI 2022-11-28 31.63 kg/m2 University of 19:19:00 [facility] Oxygen saturation 2022-11-28 100 /min [facility] in Arterial blood 19:19:00 [facility] by Pulse oximetry Branch Systolic blood 2022-11-22 146 mm[Hg] University of pressure 22:08:00 [facility] Branch Diastolic blood 2022-11-22 81 mm[Hg] University o f pressure 22:08:00 [facility] Heart rate 2022-11-22 103 /min University of 22:08:00 [facility] Body temperature 2022-11-22 37.72 Tonya University of 22:08:00 [facility] Branch Respiratory rate 2022-11-22 16 /min University of 22:08:00 [facility] Body height 2022-11-22 162.6 cm University of 22:08:00 [facility] Body weight 2022-11-22 83.915 kg University of 22:08:00 [facility] BMI 2022-11-22 31.76 kg/m2 University of 22:08:00 [facility] Oxygen saturation 2022-11-22 100 /min [facility] in Arterial blood 22:08:00 [facility] by Pulse oximetry Branch Systolic blood 2022-06-28 131 mm[Hg] University of pressure 14:29:00 [facility] Branch Diastolic blood 2022-06-28 61 mm[Hg] University o f pressure 14:29:00 [facility] Heart rate 2022-06-28 91 /min University of 14:29:00 [facility] Body temperature 2022-06-28 36.72 Tonya University of 14:29:00 [facility] Respiratory rate 2022-06-28 18 /min University of 14:29:00 [facility] Body height 2022-06-28 162.6 cm University of 14:29:00 [facility] Body weight 2022-06-28 77.565 kg University of 14:29:00 [facility] BMI 2022-06-28 29.35 kg/m2 University of 14:29:00 [facility] Systolic blood 2022-06-04 117 mm[Hg] University of pressure 16:47:00 [facility] Branch Diastolic blood 2022-06-04 82 mm[Hg] University o f pressure 16:47:00 [facility] Heart rate 2022-06-04 91 /min University of 16:47:00 [facility] Body temperature 2022-06-04 36.83 Tonya University of 16:47:00 [facility] Respiratory rate 2022-06-04 18 /min University of 16:47:00 [facility] Body height 2022-06-04 162.6 cm University of 16:47:00 [facility] Body weight 2022-06-04 75.932 kg University of 16:47:00 [facility] BMI 2022-06-04 28.73 kg/m2 University 16:47:00 [facility] BP Systolic 2022-11-07 116 mm[Hg] 11:27:00 BP Diastolic 2022-11-07 72 mm[Hg] 11:27:00 Weight Measured 2022-11-07 188.00 pounds 11:27:00 Height Measured 2022-11-07 64.25 inches 11:27:00 Body Temperature 2022-11-07 98.30 degrees 11:27:00 Heart Rate 2022-11-07 84.00 /min 11:27:00 Respiratory Rate 2022-11-07 18.00 /min 11:27:00 Respitory Rate 2021-10-20 [facility] 21:30:00 Temperature Oral 2021-10-20 98.4 F [facility] (F) 21:30:00 Systolic (mm Hg) 2021-10-20 [facility] 21:30:00 Diastolic (mm Hg) 2021-10-20 [facility] 21:30:00 Heart Rate 2021-10-20 [facility] 21:30:00 Weight 2021-10-20 [facility] 18:41:00 Systolic (mm Hg) 2021-10-20 [facility] 18:41:00 Diastolic (mm Hg) 2021-10-20 [facility] 18:41:00 Heart Rate 2021-10-20 [facility] 18:41:00 Respitory Rate 2021-10-20 [facility] 18:41:00 Temperature Oral 2021-10-20 98.7 F [facility] (F) 18:41:00 BP Systolic 2021-07-03 115 mm[Hg] 13:45:00 BP Diastolic 2021-07-03 61 mm[Hg] 13:45:00 Weight Measured 2021-07-03 159.60 pounds 13:45:00 Height Measured 2021-07-03 64.25 inches 13:45:00 Body Temperature 2021-07-03 98.00 degrees 13:45:00 Heart Rate 2021-07-03 76.00 /min 13:45:00 Respiratory Rate 2021-07-03 16.00 /min 13:45:00 Procedures Procedure Date / Time Performing Clinician Source Performed CONSENT/REFUSAL FOR 2022-12-18 12:31:50 Doctor Unassigned, No [facility] Name Medical Branch CONSENT/REFUSAL FOR 2022-12-17 18:51:54 [facility], [facility] SARS-COV-2 COVID-19 2022-12-16 19:57:47 [facility] VACC[facility] Y[facility]+, Medical Branch 0.3ML,IM (PFIZER - CHAND TOP) MENINGOCOCCAL B VACCINE, 2022-11-28 19:44:24 [facility], 2 DOSE, IM [facility] Branch FLU VACC (), 6 2022-11-28 19:44:24 Brodie Leónssica [facility] MO-62 YRS, .5ML, IM, Medical [facility] QUAD (FLUCELVAX) SARS-COV-2 COVID-19 2022-11-28 19:44:24 Romelia Deborah [facility] TANG-SUCROSE VACCINE 12 Medical Branch YRS+, BIVALENT 0.3ML, IM, (PFIZER CHAND TOP BOOSTER) CONSENT/REFUSAL FOR 2022-11-22 21:53:42 Doctor Unassigned, No [facility] Name Medical Branch AMYLASE 2022-11-11 21:51:00 [facility]IP[facility] 2022-11-11 21:51:00 [facility] C-REACTIVE PROTEIN 2022-11-11 21:51:00 [facility] 2022-11-11 21:51:00 [facility] ([id number] (ALB,T.PRO,BILI Medical Branch T,BU/BC,ALT,AST,ALK PHOS) BASIC METABOLIC PANEL 2022-11-11 21:51:00 Halley Freitas [facility] (NA, K, CL, CO2, Medical Branch GLUCOSE, BUN, CREATININE, CA) CBC WITH DIFF 2022-11-11 21:51:00 Halley Freitas [place] o f [facility] ASSIGNMENT OF BENEFITS 2022-11-11 21:26:14 Doctor Unassigned, No [facility] POCT TEST 2022-06-04 16:48:00 Garrett [facility] CONSENT FOR 2022-06-04 05:01:00 Doctor Unassigned, No [facility] CONTRACEPTION [facility] Plan of Care Planned Activity Planned Date Details Comments Source Goal Plan of Care Note [code = 15710-2] Goal Plan of Care Note [code = 60651-9] Goal Plan of Care Note [code = 07472-0] Goal Plan of Care Note [code = 84149-9] Goal Plan of Care Note [code = 52381-9] Goal Plan of Care Note [code = 03863-1] Goal Plan of Care Note [code = 68263-5] Goal Plan of Care Note [code = 36881-2] Encounters Start End Encounter Admission Attending Care Care Encounter Source Date/Time Date/Time Type Type Clinicians Facility Department ID 2022-04-15 Emergency X [facility] [id number] Univers 11:56:42 ity [facility] 2021-12-25 Outpatient P [facility] SOREN [id number] Univers 00:09:13 ity [facility] 2021-09-04 Emergency [facility] [id number] Univers 05:05:38 ity of [facility] 2021-09-03 Emergency [facility] [id number] Univers 21:57:21 ity [facility] 2021-09-03 Emergency [facility] [id number] Univers 10:37:41 ity [facility] 2021-09-03 Emergency [facility] [id number] Univers 10:06:17 ity [facility] 2021-09-02 Emergency [facility] [id number] Univers 15:56:03 ity of [facility] 2021-09-02 Emergency [facility] [id number] Univers 14:06:29 ity [facility] 2023-01-27 2023-01-27 Outpatient R ROMELIA [facility] [id number] Univers 15:00:00 15:00:00 DEBORAH lu [facility] 2022-12-31 2022-12-31 Outpatient R JASMINELADIO HEIDIJENNA [facility] B [id number] Univers 11:00:00 11:16:04 JASMINHEIDI HOOKERJENNA aly [facility] 2022-12-31 2022-12-31 [facility] 1.2.840.114 [id number] Univers 11:00:00 11:16:04 Visit Garrett ZIYAD [id number] it y of [facility] [id number] [facility] [id number] [address] 2022-12-18 2022-12-18 Outpatient R ROMELIA [facility] [id number] Univers 14:30:00 14:30:00 DEBORAH [facility] 2022-12-18 2022-12-18 Emergency [facility] [id number] Univers 06:46:00 08:09:00 SMITHA lu [facility] 2022-12-18 2022-12-18 Emergency [facility] [id number] Univers 06:46:00 08:09:00 Smitha [place] 350.1.13.10 ity [facility] 4.2.7.2.686 [facility] [id number] [address] 2022-12-17 2022-12-17 Emergency X SINGER [facility] ERT [id number] Univers 13:10:00 14:29:00 SANYA lu [facility] 2022-12-17 2022-12-17 Emergency [facility] [id number] Univers 13:10:00 14:29:00 Sanya [place] 350.1.13.10 i ty of [place] 4.2.7.2.686 [facility] [id number] [address] 2022-12-16 2022-12-16 Office [facility] [id number] [id number] Univers 15:00:00 15:00:00 Visit Deborah [place] 350.1.13.10 i [place] [id number] [address] 2022-12-16 2022-12-16 Outpatient R ROMELIA [facility] [id number] Univers 15:00:00 14:08:59 DEBORAH bria [facility] 2022-12-13 2022-12-13 Refill Doctor [facility] 1.2.840.114 [id number] Univers 00:00:00 00:00:00 UnassMEMO valentine 350.1.13.10 ity [place] [facility] 4.[place] [id number] [address] 2022-12-13 2022-12-13 Telephone Romelia [facility] [id number] Univers 00:00:00 00:00:00 Deborah [place] 350.1.13.10 i ty of [facility] 4[place].7.[place] [id number] [address] 2022-12-12 2022-12-12 Refill Romelia [facility] 1.2.840.114 [id number] Univers 00:00:00 00:00:00 Deborah [place] 350.1.13.10 i [place] [id number] [address] 2022-12-02 2022-12-02 [facility] [id number] Univers 14:20:00 14:20:00 DEBORAH lu [facility] 2022-11-28 2022-11-28 Outpatient R ROMELIA [facility] [id number] Univers 12:30:00 14:31:31 DEBORAH lu [facility] 2022-11-28 2022-11-28 Office Romelia [facility] 1.2.840.114 [id number] Univers 12:30:00 14:31:31 Visit Deborah [place] 350.1.13.10 i [place] [id number] De dical NAL 044 [facility] 2022-11-22 2022-11-22 Emergency X Katie HEALY [facility] ERT [id number] Univers 16:09:00 18:41:00 ity of [facility] 2022-11-22 2022-11-22 Emergency Katie Healy [facility] 1.2.840.114 [id number] Univers 16:09:00 18:41:00 Yara [place] 350.1.13.10 i [place] [id number] [facility] [address] [place] 2022-11-18 2022-11-18 Outpatient SFA [facility] [id number] Vince 15:15:42 15:15:42 [address] [place] 2022-11-11 2022-11-11 Outpatient R FOR[facility]INO [facility] [id number] Univers 15:27:54 23:59:00 ity of [facility] 2022-11-11 2022-11-[address] [facility] 1.2.840.114 [id number] Univers 15:27:54 23:59:00 Encounter Hugo [place] 350.1.13.10 [place] [id number] [facility] [address] [place] 2022-11-11 2022-11-11 Feed Manager Saritha [facility] 1.2.8 [id number] Univers 17:00:00 17:15:00 Visit Joy [place] 350.1.13.10 [place] [id number] De dical NAL 353 [facility] 2022-11-11 2022-11-11 Orders Doctor RONNI 1.2.840.114 [id number] Univers 00:00:00 00:00:00 Only Unassigned, [place] 350.1.13.10 ity [place] [facility] 4.2.7.2.686 Garry as [id number] [address] 2022-11-07 2022-11-07 Outpatient [facility] SFA [id number] Vince 11:20:47 11:20:47 [address] [place] 2022-11-07 2022-11-07 Outpatient [id number] 00:00:00 00:00:00 Visit [id number] 2022-07-12 Refill [facility] 1.2.840.114 [id number] Univers 00:00:00 00:00:00 Garrett LAWLER 350.1.13.10 it y [place] [id number] [address] 2022-06-28 2022-06-28 Routine [facility] 1.2.840.114 [id number] Univers 09:30:00 09:45:00 Garrett LAWLER 350.1.13.10 i ty of Visit [place] [id number] [address] 2022-06-28 2022-06-28 Outpatient R GARRETT CONLEY [facility] B [id number] Univers 09:30:00 09:30:00 GARRETT CONLEY [facility] 2022-06-04 2022-06-04 Office [facility] 1.2.840.114 [id number] Univers 11:30:00 12:00:00 Visit Garrett LAWLER 350.1.13.10 it y of [place] [id number] [address] 2022-06-04 2022-06-04 Outpatient GARRETT UPTON [facility] B [id number] Univers 11:30:00 11:30:00 GARRETT CONLEY [facility] 2022-06-04 2022-06-04 Outpatient R TRIGARRETT HOOKER [facility] B [id number] Univers 11:30:00 11:30:00 JASMINGARRETT HOOKER [facility] 2022-06-04 2022-06-04 Orders Doctor RONNI 1.2.840.114 [id number] Univers 00:00:00 00:00:00 Only Unassigned, [place] 350.1.13.10 ity of [place] [facility] 4.2.7.2.686 Garry as [id number] [address] 2022-05-31 2022-05-31 Outpatient R GARRETT CONLEY [facility] B [id number] Univers 10:00:00 10:48:39 JASMINGARRETT HOOKER [facility] 2022-05-31 2022-05-31 [facility] 1.2.840.114 [id number] Univers 10:00:00 10:48:39 Garrett LAWLER 350.1.13.10 i ty of [place] [id number] [address] 2022-05-15 2022-05-15 Case Jasmineladio [facility] 1.2.840.114 [id number] Univers 00:00:00 00:00:00 Management Garrett LAWLER 350.1.13.10 ity [place] [id number] [address] 2022-05-14 2022-05-14 Outpatient R JASMINGARRETT HOOKER [facility] B [id number] Univers 10:00:00 10:24:51 JASMINGARRETT HOOKER [facility] 2022-05-14 2022-05-14 [facility] 1.2.840.114 [id number] Univers 10:00:00 10:24:51 Garrett LAWLER 350.1.13.10 i ty of [place] [id number] [address] 2022-05-14 2022-05-14 Outpatient R TRITSGARRETT LEDEZMA [facility] B [id number] Univers 10:00:00 10:24:51 GUMETIGREGARRETT HARDY ity of [facility] 2022-04-24 2022-04-24 Outpatient R YASMANY NATH [facility] [id number] Univers 10:15:00 10:31:08 ity of [facility] 2022-04-24 2022-04-24 Nurse Nurse, [facility] 1.2.840.114 [id number] Univers 10:15:00 10:31:08 Visit Yasmany Nath 350.1.13.10 ity of [facility] 4.2.7.[address] [place] [id number] 2022-04-15 2022-04-17 Inpatient P YASMANY NATH [facility] [id number] Univers 11:58:00 20:27:00 ity of [facility] 2022-04-15 2022-04-17 Hospital Yasmany Nath [facility] 1.2.840.114 [id number] Univers 11:58:00 20:27:00 Encounter MEMO 350.1.13.10 ity of [place] 4.2.7.2.686 [facility] [id number] [address] 2022-04-16 2022-04-16 Anesthesia Freddie [facility] 1.2.840.114 [id number] Univers 20:01:16 20:01:16 Event Abel HAMPTON 350.1.13.10 i ty of [place] 4.2.7.2.686 [facility] [id number] [address] 2022-04-16 2022-04-16 Anesthesia Abel Frazier [facility] 1.2.840.11 [id number] Univers 13:03:00 18:03:00 Event Nitin Curiel [place] 350.1.13. 10 ity [facility] 4.2.7.2.686 [facility] [id number] [address] 2022-04-15 2022-04-15 Inpatient P YASMANY NATH [facility] [id number] Univers 11:58:00 13:10:54 ity of [facility] 2022-04-15 2022-04-15 Outpatient R YASMANY NATH [facility] [id number] Univers 10:15:00 13:10:54 ity of [facility] 2022-04-15 2022-04-15 Routine Yasmany Nath [facility] 1.2.840.114 [id number] Univers 10:15:00 13:10:54 ZIYAD 350.1.13.10 i ty of Visit WOMEN'S 4.2.7.2.686 [facility] [id number] [address] 2022-04-12 2022-04-12 Nurse Nurse, Dawson[facility] 1.2.840.114 [id number] Univers 11:00:00 12:02:44 Visit Yasmany Nath 350.1.13.10 ity of [place]EN'S 4.2.7.2.686 [facility] [id number] [address] 2022-04-12 2022-04-12 Outpatient R YASMANY NATH [facility] [id number] Univers 11:00:00 11:00:00 ity of [facility] 2022-04-11 2022-04-11 Outpatient R YASMANY NATH [facility] [id number] Univers 13:45:00 14:38:44 ity of [facility] 2022-04-11 2022-04-11 Routine Yasmany Nath [facility] 1.2.840.114 [id number] Univers 13:45:00 14:38:44 ZIYAD 350.1.13.10 i ty of Visit WOMEN'S 4.2.7.2.686 [facility] [id number] [address] 2022-04-08 2022-04-08 Hospital Yasmany Nath [facility] 1.2.840.114 [id number] Univers 11:22:00 14:00:00 Encounter MEMO 350.1.13.10 ity [facility] 4.2.7.2.686 [facility] [id number] [place] 0[address] [place] 2022-04-08 2022-04-08 Outpatient P YASMANY NATH [facility] [id number] Univers 11:22:00 14:00:00 ity of [facility] 2022-04-08 2022-04-08 Routine Warren [facility] 1.2. 840.114 [id number] Univers 10:15:00 10:46:12 Yasmany Nath 350.1.13.10 ity of Visit WOMEN'S 4.2.7.2.686 [facility] [id number] [facility] [address] 2022-04-08 2022-04-08 Outpatient R GARRETT CONLEY [facility] B [id number] Univers 10:15:00 10:46:12 TRITEQUILAGARRETT LEDEZMA ity [facility] 2022-04-08 2022-04-08 Orders Doctor RONNI 1.2.840.114 [id number] Univers 00:00:00 00:00:00 Only Unassigned, [place] 350.1.13.10 it[place] of [place] [facility] 4.2.7.2.686 Garry as [id number] [address] 2022-04-07 2022-04-07 Outpatient P [facility] [id number] Univers 00:43:00 03:05:00 ANGELA lu [facility] 2022-04-07 2022-04-07 [facility] 1.2.840.114 [id number] Univers 00:43:00 03:05:00 Encounter Angela HAMPTON 350.1.13.10 ity of [place] 4.2.7.2.686 [facility] [id number] [facility] [address] 2022-04-07 2022-04-07 Emergency X [facility] [id number] Univers 00:32:00 00:32:00 ANGELA lu [facility] 2022-04-07 2022-04-07 Orders Doctor RUDOLPH 1.2.840.114 [id number] Univers 00:00:00 00:00:00 Only Unassigned, [place] 350.1.13.10 it[place] of [place] [facility] 4.2.7.2.686 Garry as [id number] [address] 2022-04-04 2022-04-04 Outpatient P FISH, YASMANY [facility] [id number] Univers 10:06:00 12:40:00 ity of [facility] 2022-04-04 2022-04-04 Hospital Yasmany Nath [facility] 1.2.840.114 [id number] Univers 10:06:00 12:40:00 Encounter [place] 350.1.13.10 ity [facility] 4.2.7.2.686 [facility] [id number] [address] 2022-04-04 2022-04-04 Outpatient R YASMANY NATH [facility] [id number] Univers 08:15:00 09:12:11 ity [facility] 2022-04-04 2022-04-04 Routine Yasmany Nath [facility] 1.2.840.114 [id number] Univers 08:15:00 09:12:11 ZIYAD 350.1.13.10 i ty of Visit WOMEN'S 4.2.7.2.686 [facility] [id number] [address] 2022-03-21 2022-03-21 Outpatient R YASMANY NATH [facility] [id number] Univers 08:00:00 08:00:00 ity of [facility] 2022-03-20 2022-03-20 Outpatient R GARRETT CONLEY [facility] B [id number] Univers 14:30:00 15:06:24 JASMINTEQUILATIGREGARRETT HARDY [facility]-20 2022-03-20 Routine Warren [facility] 1.2.840.114 [id number] Univers 14:30:00 15:06:24 Garrett ZIYAD 350.1.13.10 i ty of Visit WOMEN'S 4.2.7.2.686 [facility] [id number] [address] 2022-03-20 2022-03-20 Telephone Yasmany Nath [facility] 1.2.840.11 4 [id number] Univers 00:00:00 00:00:00 ZIYAD 350.1.13.10 it y of PEDIATRIC 4.2.7.2.686 [facility] [id number] [address] 2022-03-08 2022-03-08 Outpatient R GARRETT CONLEY [facility] B [id number] Univers 09:30:00 10:12:42 GARRETT CONLEY bria [facility] 2022-03-08 2022-03-08 Routine Warren [facility] 1.2.840.114 [id number] Univers 09:30:00 10:12:42 Garrett LAWLER 350.1.13.10 i ty of [place] [id number] [address] 2022-02-21 2022-02-21 Outpatient R YASMANY NATH [facility] [id number] Univers 13:15:00 13:58:54 ity of [facility] 2022-02-21 2022-02-21 Routine Yasmany Nath [facility] 1.2.840.114 [id number] Univers 13:15:00 13:58:54 ZIYAD 350.1.13.10 i ty of [place] 4.2.[place] [id number] [address] 2022-02-08 2022-02-08 Outpatient R GARRETT CONLEY [facility] B [id number] Univers 11:00:00 11:51:44 GARRETT CONLEY [facility] 2022-02-08 2022-02-08 Routine Warren [facility] 1.2.840.114 [id number] Univers 11:00:00 11:51:44 Garrett LAWLER 350.1.13.10 i ty of [place] 4[place] [id number] [address] 2022-01-30 2022-01-30 Case Yasmany Nath [facility] 1.2.840.114 [id number] Univers 00:00:00 00:00:00 Management ZIYAD 350.1.13.10 it[place] [id number] [address] 2022-01-29 2022-01-29 Outpatient R YASMANY NATH [facility] [id number] Univers 10:00:00 10:00:00 ity of [facility] 2022-01-10 2022-01-10 Outpatient R YASMANY NATH [facility] [id number] Univers 11:15:00 12:21:25 ity of [facility] 2022-01-10 2022-01-10 Routine Yasmany Nath [facility] 1.2.840.114 [id number] Univers 11:15:00 12:21:25 ZIYAD 350.1.13.10 i ty of Visit [facility] 4.2.7.2.686 [facility] [id number] [facility] [address] [place] 2021-12-26 2021-12-26 Feed Manager [facility] 1.2 .840.114 [id number] Univers 09:30:00 10:56:59 Visit María Aleman DOMAIN ARCHITECT 350.1. 13.10 ity [facility] 4.2.7.2.686 Garry as MATERNAL [id number] Med ical & CHILD [address] [place] [address] 2021-12-26 2021-12-26 Outpatient P INA [facility] [id number] Univers 09:30:00 09:30:00 NEMESIO it y of S BANERJEE [facility] 2021-12-24 2021-12-24 Outpatient P ELEANOR NEVAREZ [facility] [id number] Univers 22:38:00 23:45:00 ity of [facility] 2021-12-24 2021-12-24 [facility] Eleanor Nevarez [facility] 1.2.840.114 [id number] Univers 22:38:00 23:45:00 Encounter Krist[facility] 350.1.13.10 ity [facility] 4.2.7.2.686 [facility] [id number] [place] [address] [place] 2021-12-24 2021-12-24 Orders Doctor RUDOLPH 1.2.840.114 [id number] Univers 00:00:00 00:00:00 Only Unassigned, [place] 350.1.13.10 ity of [place] [facility] 4.2.7.2.686 Garry as [id number] [address] 2021-12-17 2021-12-17 Telephone Yasmany Nath [facility] BLACK 1.2.840.11 [id number] Univers 00:00:00 00:00:00 ZIYAD 350.1.13.10 it y [place] [id number] [address] 2021-12-13 2021-12-13 Feed Manager Lab, Ang - Luis Fernando [facility] 1.2.840.1 14 [id number] Univers 10:00:00 10:15:00 Visit Yasmany Nath 350.1.13.10 ity of [place] 4.2.7.2.686 Garry as BECKY?BLEA [id number] [address] MEDICAL OFFICE BUILDING 2021-12-13 2021-12-13 Outpatient R YASMANY NATH [facility] [id number] Univers 10:00:00 10:00:00 ity [facility] 2021-12-11 2021-12-11 Outpatient R YASMANY NATH [facility] [id number] Univers 16:00:00 16:29:05 ity [facility] 2021-12-11 2021-12-11 Routine Yasmany Nath [facility] 1.2.840.114 [id number] Univers 16:00:00 16:29:05 ZIYAD 350.1.13.10 i ty of [place] [id number] [address] 2021-11-27 2021-11-27 Outpatient R YASMANY NATH [facility] [id number] Univers 08:45:00 08:45:00 ity [facility] 2021-11-26 2021-11-26 Telephone Yasmany Nath [facility] 1.2.840.11 [id number] Univers 00:00:00 00:00:00 ZIYAD 350.1.13.10 it y [place] [id number] [address] 2021-11-18 2021-11-18 Telephone Rosa Maria [facility] 1.2.840.114 [id number] Univers 00:00:00 00:00:00 [facility] 350.1.13.10 it [facility] 4.2.7[facility]2.686 Garry as BECKY?BLEA [id number] [address] MEDICAL OFFICE BUILDING 2021-11-18 2021-11-18 Telephone RONNI Santos 1.2.062.865 [id number] Univers 00:00:00 00:00:00 Sisnii FOFANA 350.1.13.10 i ty of HOSPITAL 4.2.7.2.686 Garry as [id number] [address] 2021-11-17 2021-11-17 Urgent Viky Soto [facility] 1.2.840.114 [id number] Univers 13:40:00 14:00:00 Care Ho Martínez [facility] 350.1.13.10 ity of [place] 4.2.7.2.686 Garry as BECKY?BLEA [id number] [address] MEDICAL OFFICE [facility] 2021-11-17 2021-11-17 Outpatient R MAURICIO [facility] [id number] Univers 13:40:00 13:58:03 HO kalynbria o f [facility] 2021-11-14 2021-11-14 Outpatient R [facility] [id number] Univers 13:00:00 13:00:00 ity [facility] 2021-11-13 2021-11-13 Outpatient R YASMANY NATH [facility] [id number] Univers 13:15:00 14:02:44 ity [facility] 2021-11-13 2021-11-13 Routine Yasmany Nath [facility] BLACK 1.2.840.114 [id number] Univers 13:15:00 14:02:44 ZIYAD 350.1.13.10 i ty of [place] [id number] [facility] [address] 2021-11-13 2021-11-13 Outpatient R YASMANY NATH [facility] [id number] Univers 11:00:00 11:00:00 ity [facility] 2021-11-13 2021-11-13 Outpatient R YASMANY NATH [facility] [id number] Univers 11:00:00 11:00:00 ity [facility] 2021-11-07 2021-11-07 Patient Doctor [facility] SOFIA 1.2.059.762 [id number] Univers 00:00:00 00:00:00 Secure Msg Unassigned, ZIYAD 350.1.13.10 [place] of [place] [facility] 4.2.7.2.686 [facility] [id number] [address] 2021-11-05 2021-11-05 Outpatient R CECE [facility] [id number] Univers 16:45:00 17:21:14 RONNI [facility] 2021-11-05 2021-11-05 Laboratory Only, Ang Db Test [facility] 1.2.8 40.114 [id number] Univers 16:45:00 17:00:00 Only Jana [facility] 350.1.13.10 ity of Ronni [place] 4.2.7.2.686 [facility]?BLEA [id number] [address] MEDICAL OFFICE BUILDING 2021-11-05 2021-11-05 Outpatient R CECE [facility] [id number] Univers 16:45:00 16:45:00 RONNI bria [facility] 2021-11-05 2021-11-05 Outpatient FBCOVID FBCOVID [id number] 5-2 FBCOVID 00:00:00 00:00:00 [id number] 2021-10-30 2021-10-30 Telephone Yasmany Nath [facility] SOFIA 1.2.840.11 [id number] Univers 00:00:00 00:00:00 ZIYAD 350.1.13.10 it y of WOMEN'S 4.2.7.2.686 [facility] [id number] [address] 2021-10-23 2021-10-23 Outpatient R CHONG NATHN [facility] [id number] Univers 16:00:00 16:51:37 ity [facility] 2021-10-23 2021-10-23 Routine FishYasmany BLACK 1.2.840.114 [id number] Univers 16:00:00 16:51:37 ZIYAD 350.1.13.10 i ty of Visit WOMEN'S 4.2.7.2.686 [facility] [id number] [address] 2021-10-20 2021-10-20 Emergency [facility] [id number] Memoria 18:13:35 21:38:00 r [place] 00 l [place] Leia nn 2021-10-20 2021-10-20 Emergency [facility] [id number] Memoria 18:13:35 21:38:00 r [place] 00 l [place] Leia 2021-10-20 2021-10-20 Outpatient Carrillo SL SL [id number] 12:13:35 15:38:00 Rubén 00 [place] 2021-10-20 2021-10-20 Emergency E CARRILLO, MHFB MHFB 7500 MHFB 12:13:00 15:38:00 RUBÉN 2021-09-25 2021-09-25 Routine FishYasmany [facility] 1.2.840.114 [id number] Univers 14:32:33 15:54:25 ZIYAD 350.1.13.10 i ty of Visit WOMEN'S 4.7.2.686 [facility] [id number] [address] 2021-09-25 2021-09-25 Outpatient R YASMANY NATH [facility] [id number] Univers 14:30:00 15:54:25 ity of [facility] 2021-09-13 2021-09-13 Orders Doctor RONNI 1.2.840.114 [id number] Univers 00:00:00 00:00:00 Only Unassigned, [place] 350.1.13.10 ity of [place] [facility] 4.2.7.2.686 [facility] [id number] [place] [address] [place] 2021-09-11 2021-09-11 Routine FishYasmany BLACK 1.2.840.114 [id number] Univers 11:51:18 12:19:30 ZIYAD 350.1.13.10 i ty of [place] [id number] [address] 2021-09-11 2021-09-11 Outpatient R YASMANY NATH [facility] [id number] Univers 11:15:00 12:19:30 ity of [facility] 2021-09-11 2021-09-11 Outpatient R YASMANY NATH [facility] [id number] Univers 11:15:00 12:19:30 ity of [facility] 2021-09-07 2021-09-07 Feed Manager 2, Adc Lab [facility] 1.2.840.114 [id number] Univers 15:55:24 15:55:31 Visit PortilloYasmany MEMO 350.1.13.10 ity of [place].2.7.2.686 [place] [id number] De dical [facility] 353 [facility] 2021-09-07 2021-09-07 Outpatient R YASMANY NATH [facility] [id number] Univers 15:00:00 15:50:43 ity of [facility] 2021-09-07 2021-09-07 Routine PortilloChongn [facility] 1.2.840.114 [id number] Univers 14:50:47 15:50:43 MEMO 350.1.13.10 ity of Visit [place] 4.2.7.2.686 [place] [id number] De dic[address] 2021-09-07 2021-09-07 Outpatient R YASMANY NATH [facility] [id number] Univers 15:00:00 15:00:00 ity of [facility] 2021-08-31 2021-08-31 Outpatient R YASMANY NATH [facility] [id number] Univers 15:00:00 16:23:03 ity of [facility] 2021-08-31 2021-08-31 Outpatient R YASMANY NATH [facility] [id number] Univers 15:00:00 16:23:03 ity [facility] 2021-08-31 2021-08-31 Office Yasmany Nath [facility] 1.2.840.114 [id number] Univers 14:44:15 16:23:03 Visit MEMO 350.1.13.10 i ty of [facility] 4.2.7.2.686 [place] [id number] De dical [place] [address] [address] [facility] [address] 2021-08-22 2021-08-22 Case Yasmany Nath [facility] 1.2.840.114 [id number] Univers 00:00:00 00:00:00 Management ZIYAD 350.1.13.10 it[place] [id number] [address] 2021-08-20 2021-08-20 Initial Yasmany Nath [facility] 1.2.840.114 [id number] Univers 14:18:58 15:08:40 Ziyad 350.1.13.10 i ty of Visit [facility] 4.2.[place].2.[place] [id number] [address] 2021-08-20 2021-08-20 Outpatient R YASMANY NATH [facility] [id number] Univers 14:30:00 14:30:00 ity of [facility] 2021-08-20 2021-08-20 Orders Doctor RONNI 1.2.840.114 [id number] Univers 00:00:00 00:00:00 Only Unassigned, [place] 350.1.13.10 it[place] of [place] [facility] 4.2.7.2.686 Garry as [id number] [facility] [address] 2021-08-09 2021-08-09 Emergency [facility] 1.2.840.114 [id number] Univers 20:20:00 22:03:00 Moustapha [place] 350.1.13.10 i ty of [place] 4.2.7.2.[place] [id number] [facility] [address] [place] 2021-07-13 2021-07-14 Emergency [facility] 1.2.840.114 [id number] Univers 23:18:00 03:48:00 Cookie [place] 350.1.13.10 ity of [place] 4.2.7.2.686 [place] [id number] [place] [address] [place] 2021-06-15 2021-06-15 Orders Doctor RONNI 1.2.840.114 [id number] Univers 00:00:00 00:00:00 Only Unassigned, [place] 350.1.13.10 ity of [place] [facility] 4.2.7.2.686 Garry [id number] [facility] [address] 2021-05-27 2021-05-28 Emergency Ewelina [facility] 1.2.219.501 [id number] Univers 21:55:00 02:20:00 Carlos [place] 350.1.13.10 ity of [place] 4.2.7.2.686 [facility] [id number] [facility] [address] 2021-05-24 2021-05-24 Emergency Katie Healy [facility] 1.2.840.114 [id number] Univers 14:00:00 16:21:00 Yara [place] 350.1.13.10 i ty of [place] 4.2.7.2.686 [facility] [id number] [place] [address] [place] 2021-02-20 2021-02-20 Emergency [facility] 1.2.394.483 [id number] 12:33:00 14:42:00 Joshua [place] 350.1.13.10 [place] 4.2.7.2.686 [place] [id number] [facility] 2021-02-20 2021-02-20 Emergency [facility] 1.2.053.854 [id number] Univers 12:33:00 14:42:00 Joshua [place] 350.1.13.10 i ty of [place] 4.2.7.2.686 [facility] [id number] [place] [address] [place] 2020-10-18 2020-10-18 Urgent Mayte [facility] 1.2.840.114 [id number] 18:54:05 19:14:05 Care [facility] 350.1.13.10 [place] 4.2.7.2.686 Professio [id number] nal [address] 2020-10-18 2020-10-18 Urgent Mayte [facility] 1.2.840.114 [id number] Univers 18:54:05 19:14:05 Care [facility] 350.1.13.10 it y of [place] 4.2.7.2.686 Garry as Professio [phone] [address] Office [facility] 2020-10-18 2020-10-18 Outpatient R [facility] [id number] Univers 19:00:00 19:00:00 ity [facility] 2020-10-08 2020-10-08 Telephone RONNI Santos [id number] 00:00:00 00:00:00 Sissaeed CANOY 350.1.13.10 [facility] 4.2.7.2.686 [id number] [facility] 2020-10-08 2020-10-08 Telephone RONNI Santos [id number] [facility] 00:00:00 00:00:[address] 350.1.13.10 i ty of [facility] 4.2.7.2.686 Garry as [phone] [address] 2020-10-06 2020-10-06 Laboratory Lab, [facility] 1.2.840.114 [id number] 18:44:07 19:04:07 Only Fam Pob I Health 350.1.13.10 [place] 4.2.7.2.686 Professio [phone] [place] [address] Office [facility] 2020-10-06 2020-10-06 Laboratory Lab, [facility] Fam Pob I [facility] 1.2. 840.114 [id number] Univers 18:44:07 19:04:07 Only Unknown, Attending Health 350.1.13.10 ity of [place] 4.2.7.2.686 Garry as Professio [phone] [address] Office [facility] 2020-10-06 2020-10-06 Outpatient R UNKNOWN, [facility] [id number] Univers 18:40:00 18:40:00 ATTENDING ity [facility] 2020-09-22 2020-09-22 Laboratory Only, [facility] 1.2.840.114 [id number] 11:10:22 11:25:22 Only Test [place] 350.1.13.10 [place] 4.2.7.2.686 [place] [id number] [id number] 2020-09-22 2020-09-22 Laboratory Only, [facility] Test [facility] 1.2.840. 114 [id number] Univers 11:10:22 11:25:22 Only Joy Baxter 350.1.13.10 ity of [place] 4.2.7.2.686 [place] [phone] [address] 2020-09-22 2020-09-22 Outpatient R JAGRUTI [facility] [id number] Univers 11:00:00 11:00:00 JOY ity [facility] 2020-09-22 2020-09-22 Orders Doctor RONNI 1.2.840.114 [id number] 00:00:00 00:00:00 Only Unassigned, [place] 350.1.13.10 [facility] 4.2.7.2.686 [id number] [id number] 2020-09-22 2020-09-22 Orders Doctor RONNI 1.2.840.114 [id number] Univers 00:00:00 00:00:00 Only Unassigned, [place] 350.1.13.10 ity of [place] [facility] 4.2.7.2.686 Garry as [phone] [address] 2020-07-09 2020-07-09 Letter RONNI Alexander 1.2.840.114 [id number] 00:00:00 00:00:00 (Out) Fátima FOFANA 350.1.13.10 HOSPITAL 4.2.7.2.686 [id number] [id number] 2020-07-09 2020-07-09 RONNI Bailey 1.2.840.114 [id number] Univers 00:00:00 00:00:00 (Out) Fátima CANOY 350.1.13.10 it y of HOSPITAL 4.2.7.2.686 Garry as [phone] [address] 2020-07-07 2020-07-07 Laboratory Lab, [facility] 1.2.840.114 [id number] 13:12:08 13:32:08 Only Fam Pob I Health 350.1.13.10 [place] 4.2.7.2.686 Professio [phone] nal 044 Office [address] [facility] 2020-07-07 2020-07-07 Laboratory Lab, Adc Fam Pob I [facility] 1.2. [id number] Univers 13:12:08 13:32:08 Only Dayday [facility] [id number] [facility] [id number] Garry as Professio [phone] De dical [facility] [phone] [place] [address] 2020-07-07 2020-07-07 Outpatient R ROLAND [facility] [id number] Univers 13:00:00 13:00:00 [facility] 2019-07-31 2019-07-31 Outpatient R UNKNOWN, [facility] RAD [id number] Univers 00:00:00 09:28:00 ATTENDING [facility] Results Test Description Test Time Test Comments Results Result Comments Source H. PYLORI (BREATH) 2022-11-08 13:51:06 Test Item Value Reference Range Interpretation Comme nts H. PYLORI (BREATH) (test code NEGATIVE NEGATIVE UNLESS OTHERWISE INDICATED, ALL = 57210) TESTING PERFORM ED ATCLINICAL PATHOLOGY [employer], [employer]. [address] [place] [address] [employer]: DEBBIE MATHIS M.D. CLIA NUMBER [id number] CAP ACCREDITATION N O. [id number] CBC W/AUTO DIFF WITH [id number] 02:35:50 Test Item Value Reference Range Interpretation Comments WBC (test code = 6.0 K/UL 3.5-11.0 1001) RBC (test code = 4.69 M/UL 3.80-5.40 1002) HEMOGLOBIN (test 11.1 G/DL 11.5-15.5 L code = 1003) HEMATOCRIT (test 35.1 % 34.0-45.0 code = 1004) MCV (test code = 74.8 fL 80.0-99.0 L 1005) MCH (test code = 23.7 PG 25.0-33.0 L 1006) MCHC (test code = 31.6 G/DL 31.0-36.0 1007) RDW (test code = 17.0 % 11.5-15.0 H 1038) NEUTROPHILS (test 54.8 % code = 1008) LYMPHOCYTES (test 34.8 % code = 1010) MONOCYTES (test code 7.3 % = 1011) EOSINOPHILS (test 2.3 % code = 1012) BASOPHILS (test code 0.5 % = 1013) IMMATURE 0.3 % GRANULOCYTES (test code = 1036) NUCLEATED RBCS (test 0.0 /100 See_Comment [Autom ated message] code = 1065) WBC'S The system [employer] generated this result transmitted ref erence range: 0.0. The reference range was not used to int erpret this result as normal/abnormal . PLATELET COUNT (test 316 K/UL 130-400 code = 1015) ABSOLUTE NEUTROPHILS 3.29 K/UL 1.50-7.50 (test code = 1066) ABSOLUTE LYMPHOCYTES 2.09 K/UL 1.00-4.00 (test code = 1067) ABSOLUTE MONOCYTES 0.44 K/UL 0.20-1.00 (test code = 1068) ABSOLUTE EOSINOPHILS 0.14 K/UL 0.00-0.50 (test code = 1040) ABSOLUTE BASOPHILS 0.03 K/UL 0.00-0.20 (test code = 1069) ABS IMMATURE 0.02 K/UL 0.00-0.10 GRANULOCYTES (test code = 1020) ABS NUCLEATED RBCS 0.00 K/UL 0.00-0.11 UNLESS O THERWISE (test code = 73661) INDICATE D, ALL TESTING PERFORM ED ATCLINICAL PATH OLOGY LABORATORIES, [facility]. [address] [place] [id number] [place] [address] DIRECTOR: DEBBIE MATHIS M.D. CLIA NUMBER [id number] CAP ACCREDITATION N O. [id number] CBC W/AUTO [id number] 00:00:00 Test Item Value Reference Range Interpretation Comments WBC (test code = 1001) 6.0 K/UL RBC (test code = 1002) 4.69 M/UL HEMOGLOBIN (test code = 1003) 11.1 G/DL HEMATOCRIT (test code = 1004) 35.1 % MCV (test code = 1005) 74.8 fL MCH (test code = 1006) 23.7 PG MCHC (test code = 1007) 31.6 G/DL RDW (test code = 1038) 17.0 % NEUTROPHILS (test code = 1008) 54.8 % LYMPHOCYTES (test code = 1010) 34.8 % MONOCYTES (test code = 1011) 7.3 % EOSINOPHILS (test code = 1012) 2.3 % BASOPHILS (test code = 1013) 0.5 % IMMATURE GRANULOCYTES (test 0.3 % code = 1036) NUCLEATED RBCS (test code = 0.0 /100WBC'S 1065) PLATELET COUNT (test code = 316 K/UL 1015) ABSOLUTE NEUTROPHILS (test code 3.29 K/UL = 1066) ABSOLUTE LYMPHOCYTES (test code 2.09 K/UL = 1067) ABSOLUTE MONOCYTES (test code = 0.44 K/UL 1068) ABSOLUTE EOSINOPHILS (test code 0.14 K/UL = 1040) ABSOLUTE BASOPHILS (test code = 0.03 K/UL 1069) ABS IMMATURE GRANULOCYTES (test 0.02 K/UL code = 1020) ABS NUCLEATED RBCS (test code = 0.00 K/UL 09563) H. PYLORI (BREATH)2022-11-08 00:00:00 Test Item Value Reference Range Interpretation Comments H. PYLORI (BREATH) (test code = NEGATIVE 35895) H. PYLORI (BREATH)2022-11-08 00:00:00 Test Item Value Reference Range Interpretation Comments H. PYLORI (BREATH) (test code = NEGATIVE 88027) CBC W/AUTO [id number] 00:00:00 Test Item Value Reference Range Interpretation Comments WBC (test code = 1001) 6.0 K/UL RBC (test code = 1002) 4.69 M/UL HEMOGLOBIN (test code = 1003) 11.1 G/DL HEMATOCRIT (test code = 1004) 35.1 % MCV (test code = 1005) 74.8 fL MCH (test code = 1006) 23.7 PG MCHC (test code = 1007) 31.6 G/DL RDW (test code = 1038) 17.0 % NEUTROPHILS (test code = 1008) 54.8 % LYMPHOCYTES (test code = 1010) 34.8 % MONOCYTES (test code = 1011) 7.3 % EOSINOPHILS (test code = 1012) 2.3 % BASOPHILS (test code = 1013) 0.5 % IMMATURE GRANULOCYTES (test 0.3 % code = 1036) NUCLEATED RBCS (test code = 0.0 /100WBC'S 1065) PLATELET COUNT (test code = 316 K/UL 1015) ABSOLUTE NEUTROPHILS (test code 3.29 K/UL = 1066) ABSOLUTE LYMPHOCYTES (test code 2.09 K/UL = 1067) ABSOLUTE MONOCYTES (test code = 0.44 K/UL 1068) ABSOLUTE EOSINOPHILS (test code 0.14 K/UL = 1040) ABSOLUTE BASOPHILS (test code = 0.03 K/UL 1069) ABS IMMATURE GRANULOCYTES (test 0.02 K/UL code = 1020) ABS NUCLEATED RBCS (test code = 0.00 K/UL 29292) CBC W/AUTO [id number] 00:00:00 Test Item Value Reference Range Interpretation Comments WBC (test code = 1001) 6.0 K/UL RBC (test code = 1002) 4.69 M/UL HEMOGLOBIN (test code = 1003) 11.1 G/DL HEMATOCRIT (test code = 1004) 35.1 % MCV (test code = 1005) 74.8 fL MCH (test code = 1006) 23.7 PG MCHC (test code = 1007) 31.6 G/DL RDW (test code = 1038) 17.0 % NEUTROPHILS (test code = 1008) 54.8 % LYMPHOCYTES (test code = 1010) 34.8 % MONOCYTES (test code = 1011) 7.3 % EOSINOPHILS (test code = 1012) 2.3 % BASOPHILS (test code = 1013) 0.5 % IMMATURE GRANULOCYTES (test 0.3 % code = 1036) NUCLEATED RBCS (test code = 0.0 /100WBC'S 1065) PLATELET COUNT (test code = 316 K/UL 1015) ABSOLUTE NEUTROPHILS (test code 3.29 K/UL = 1066) ABSOLUTE LYMPHOCYTES (test code 2.09 K/UL = 1067) ABSOLUTE MONOCYTES (test code = 0.44 K/UL 1068) ABSOLUTE EOSINOPHILS (test code 0.14 K/UL = 1040) ABSOLUTE BASOPHILS (test code = 0.03 K/UL 1069) ABS IMMATURE GRANULOCYTES (test 0.02 K/UL code = 1020) ABS NUCLEATED RBCS (test code = 0.00 K/UL 26313) POCT [id number] 16:48:00 Test Item Value Reference Range Interpretation Comments POCT PREG (test code = 1605) Negative On board controls acceptable with C Yes Line (test code = 3574) POCT PREG LOT # (test code = 3575) POCT PREG TEST DATE (test code = 3576) [id number] 16:48:00 Test Item Value Reference Range Interpretation Comments POCT PREG (test code = 1605) Negative On board controls acceptable with C Yes Line (test code = 3574) POCT PREG LOT # (test code = 3575) POCT PREG TEST DATE (test code = 3576) [facility] 19:32:00 Test Item Value Reference Range Interpretation Comments Platelet (test code = Platelet) 204 133-450 [facility] Cent[id number] 19:32:00 Test Item Value Reference Range Interpretation Comments MPV (test code = MPV) 8.4 7.4-10.4 [facility] CenterVdacevbFKMFJJWYAT3240-12-30 19:32:00 Test Item Value Reference Range Interpretation Comments Segs (test code = Segs) 68.6 45.0-75.0 [facility] CenterWomscidBJVTRPTXAE9733-11-30 19:32:00 Test Item Value Reference Range Interpretation Comments Lymphocytes (test code = Lymphocytes) 22.9 20.0-40.0 [facility] CenterRnonxuyZWCIILANGE0654-53-06 19:32:00 Test Item Value Reference Range Interpretation Comments Monocytes (test code = Monocytes) 6.9 2.0-12.0 [facility] [id number] 19:32:00 Test Item Value Reference Range Interpretation Comments Eosinophils (test code = 1.0 See_Comment [A utomated message] The Eosinophils) system which ge nerated this result tra nsmitted reference range : <=4.0. The reference r pauline was not used to int erpret this result as normal/abnormal . [facility] CenterXxpprtnHDCMWCRPSM9973-65-77 19:32:00 Test Item Value Reference Range Interpretation Comments Basophils (test code = 0.6 See_Comment [Aut omated message] The Basophils) system which ge nerated this result tra nsmitted reference range : <=1.0. The reference r pauline was not used to int erpret this result as normal/abnormal . [facility] C[id number] 19:32:00 Test Item Value Reference Range Interpretation Comments Neutrophils # (test code = Neutrophils 4.6 1.5-8.1 #) [facility] CenterZbqtdrbJLOWLMAYNS9331-10-18 19:32:00 Test Item Value Reference Range Interpretation Comments Lymphocytes # (test code = Lymphocytes 1.5 1.0-5.5 #) [facility] [id number] 19:32:00 Test Item Value Reference Range Interpretation Comments Monocytes # (test code 0.5 See_Comment [Aut omated message] The = Monocytes #) system which generated this result tra nsmitted reference range : <=0.8. The reference r pauline was not used to int erpret this result as normal/abnormal . [facility] CenterVzywqgaKXZSLDDEIT3162-56-24 19:32:00 Test Item Value Reference Range Interpretation Comments Eosinophils # (test code 0.1 See_Comment [A utomated message] The = Eosinophils #) system whic h generated this result tra nsmitted reference range : <=0.5. The reference r pauline was not used to int erpret this result as normal/abnormal . [facility] AND [id number] 19:32:00 Test Item Value Reference Range Interpretation Comments UA Color (test code = Light Yellow UA Color) *NA*(10/20/21 1:32 PM) [facility] AND [id number] 19:32:00 Test Item Value Reference Range Interpretation Comments UA Turbidity (test code = Clear (10/20/21 1:32 UA Turbidity) PM) [facility] AND [id number] 19:32:00 Test Item Value Reference Range Interpretation Comments UA Spec Grav (test code = UA Spec 1.012 1 Grav) [facility] AND [id number] 19:32:00 Test Item Value Reference Range Interpretation Comments UA pH (test code = UA pH) 8.0 1 5.0-8.0 [facility] AND [id number] 19:32:00 Test Item Value Reference Range Interpretation Comments UA Protein (test code Negative (10/20/21 1:32 = UA Protein) PM) [facility] AND [id number] 19:32:00 Test Item Value Reference Range Interpretation Comments UA Glucose (test code Negative *NA*(10/20/21 = UA Glucose) 1:32 PM) [facility] AND [id number] 19:32:00 Test Item Value Reference Range Interpretation Comments UA Ketones (test code Negative *NA*(10/20/21 = UA Ketones) 1:32 PM) [facility] [id number] 19:32:00 Test Item Value Reference Range Interpretation Comments UA Bili (test code = Negative *NA*(10/20/21 UA Bili) 1:32 PM) [facility] [id number] 19:32:00 Test Item Value Reference Range Interpretation Comments UA Blood (test code = Negative (10/20/21 1:32 UA Blood) PM) [facility] [id number] 19:32:00 Test Item Value Reference Range Interpretation Comments UA Urobilinogen (test code = UA <=1.0 mg/dL 0.1-1.0 Urobilinogen) [facility] [id number] 19:32:00 Test Item Value Reference Range Interpretation Comments UA Nitrite (test code Negative (10/20/21 1:32 = UA Nitrite) PM) [facility] [id number] 19:32:00 Test Item Value Reference Range Interpretation Comments UA Leuk Est (test code Trace *ABN*(10/20/21 = UA Leuk Est) 1:32 PM) [facility] [id number] 19:32:00 Test Item Value Reference Range Interpretation Comments UA Sq Epi (test code = UA Sq Occasional /LPF Epi) [facility] [id number] 19:32:00 Test Item Value Reference Range Interpretation Comments UA WBC (test code = 2 See_Comment [Automa cindy message] The UA WBC) system which ge nerated this result transmit cindy reference range : <=5. The reference range was not used to interpr et this result as jonn l/abnormal. [facility] [id number] 19:32:00 Test Item Value Reference Range Interpretation Comments UA RBC (test code = no gt See_Comment [Automa cindy message] The UA RBC) system which ge nerated this result transmit cindy reference range : <=2. The reference range was not used to interpr et this result as jonn l/abnormal. [facility] [id number] 19:32:00 Test Item Value Reference Range Interpretation Comments UA Mucus (test code = UA Mucus) Few /LPF [facility] BANK [id number] 19:32:00 Test Item Value Reference Range Interpretation Comments ABO/Rh (test code = ABO/Rh) A POS [facility] CenterPicturelifeATRIUM HEALTH [id number] 19:32:00 Test Item Value Reference Range Interpretation Comments Glucose Lvl (test code = Glucose Lvl) 74 70-99 [facility] CenterPicturelifeATRIUM HEALTH [id number] 19:32:00 Test Item Value Reference Range Interpretation Comments BUN (test code = BUN) 5 7-22 [facility]2021-12-18 19:32:00 Test Item Value Reference Range Interpretation Comments Creatinine Lvl (test code = Creatinine 0.36 0.50-1.40 Lvl) [facility] CenterPicturelifeATRIUM HEALTH [id number] 19:32:00 Test Item Value Reference Range Interpretation Comments Sodium Lvl (test code = Sodium Lvl) 139 135-145 [facility] CenterSurvival Media [id number] 19:32:00 Test Item Value Reference Range Interpretation Comments Potassium Lvl (test code = Potassium 3.0 3.5-5.1 Lvl) [facility] CenterPicturelifeATRIUM HEALTH [id number] 19:32:00 Test Item Value Reference Range Interpretation Comments Chloride Lvl (test code = Chloride Lvl) 108 95-109 [facility] CenterSurvival Media [id number] 19:32:00 Test Item Value Reference Range Interpretation Comments CO2 (test code = CO2) 26 24-32 [facility]2021-12-18 19:32:00 Test Item Value Reference Range Interpretation Comments AGAP (test code = AGAP) 8.0 10.0-20.0 [facility] CenterSurvival Media [id number] 19:32:00 Test Item Value Reference Range Interpretation Comments Calcium Lvl (test code = Calcium Lvl) 8.6 8.5-10.5 [facility] CenterSurvival Media [id number] 19:32:00 Test Item Value Reference Range Interpretation Comments B/C Ratio (test code = B/C Ratio) 14 1 6-25 [place] [id number] 19:32:00 Test Item Value Reference Range Interpretation Comments Total Protein (test code = Total 7.1 6.4-8.4 Protein) [facility]2021-12-18 19:32:00 Test Item Value Reference Range Interpretation Comments Albumin Lvl (test code = Albumin Lvl) 3.1 3.5-5.0 [place] [id number] 19:32:00 Test Item Value Reference Range Interpretation Comments Globulin (test code = Globulin) 4.0 2.7-4.2 [place] 500361-12-18 19:32:00 Test Item Value Reference Range Interpretation Comments A/G Ratio (test code = A/G Ratio) 0.8 1 0.7-1.6 [place] 500361-12-18 19:32:00 Test Item Value Reference Range Interpretation Comments ALT (test code = ALT) 10 See_Comment [Auto mated message] The system which ge nerated this result transmit cindy reference range : <=65. The reference range was not used to interpr et this result as jonn l/abnormal. [facility]2021-12-18 19:32:00 Test Item Value Reference Range Interpretation Comments AST (test code = AST) 10 See_Comment [Auto mated message] The system which ge nerated this result transmit cindy reference range : <=37. The reference range was not used to interpr et this result as jonn l/abnormal. [place] [id number] 19:32:00 Test Item Value Reference Range Interpretation Comments Alk Phos (test code = Alk Phos) 50 43-86 [facility]2021-12-18 19:32:00 Test Item Value Reference Range Interpretation Comments Bili Total (test code = Bili Total) 0.2 0.2-1.3 [place] 500361-12-18 19:32:00 Test Item Value Reference Range Interpretation Comments eGFR (test code = eGFR) 158 [facility]PV[facility]DCXUHG3246-35-96 19:32:00 Test Item Value Reference Range Interpretation Comments hCG Tot (test code = hCG Tot) 550[address] [facility] CenterBwzqigoWGKGIGGSUP7633-30-13 19:32:00 Test Item Value Reference Range Interpretation Comments WBC (test code = WBC) 6.7 3.7-10.4 [place] 016401-12-18 19:32:00 Test Item Value Reference Range Interpretation Comments RBC (test code = RBC) 3.96 4.20-5.[address]12-18 19:32:00 Test Item Value Reference Range Interpretation Comments Hgb (test code = Hgb) 10.8 12.0-16.0 [place] 016401-12-18 19:32:00 Test Item Value Reference Range Interpretation Comments Hct (test code = Hct) 32.4 36.0-48.0 [place] 016401-12-18 19:32:00 Test Item Value Reference Range Interpretation Comments MCV (test code = MCV) 82.0 80.0-98.0 [place] 016401-12-18 19:32:00 Test Item Value Reference Range Interpretation Comments MCH (test code = MCH) 27.2 pg 27.0-31.0 [place] 016401-12-18 19:32:00 Test Item Value Reference Range Interpretation Comments MCHC (test code = MCHC) 33.2 32.0-36.0 [place] 016401-12-18 19:32:00 Test Item Value Reference Range Interpretation Comments RDW (test code = RDW) 15.8 11.5-14.5 [place] 016401-12-18 19:32:00 Test Item Value Reference Range Interpretation Comments Platelet (test code = Platelet) 204 133-450 [facility] CenterOruvzrbDAZDBLVBBC5999-65-91 19:32:00 Test Item Value Reference Range Interpretation Comments MPV (test code = MPV) 8.4 7.4-10.4 [place] 016401-12-18 19:32:00 Test Item Value Reference Range Interpretation Comments Segs (test code = Segs) 68.6 45.0-75.0 [place] 016401-12-18 19:32:00 Test Item Value Reference Range Interpretation Comments Lymphocytes (test code = Lymphocytes) 22.9 20.0-40.0 [place] [address]-12-18 19:32:00 Test Item Value Reference Range Interpretation Comments Monocytes (test code = Monocytes) 6.9 2.0-12.0 [place] [address]-12-18 19:32:00 Test Item Value Reference Range Interpretation Comments Eosinophils (test code = 1.0 See_Comment [A utomated message] The Eosinophils) system which ge nerated this result tra nsmitted reference range : <=4.0. The reference r pauline was not used to int erpret this result as normal/abnormal . [facility] CenterBrlkafuNEZOVANYIK0686-39-26 19:32:00 Test Item Value Reference Range Interpretation Comments Basophils (test code = 0.6 See_Comment [Aut omated message] The Basophils) system which ge nerated this result tra nsmitted reference range : <=1.0. The reference r pauline was not used to int erpret this result as normal/abnormal . [facility] CenterOjrsptnKBMZIUHLFT5131-52-28 19:32:00 Test Item Value Reference Range Interpretation Comments Neutrophils # (test code = Neutrophils 4.6 1.5-8.1 #) [facility] CenterPulbjzwUAQZNSBSOB2501-38-05 19:32:00 Test Item Value Reference Range Interpretation Comments Lymphocytes # (test code = Lymphocytes 1.5 1.0-5.5 #) [facility] CenterOovpihlRBZWXPWUXA5983-61-32 19:32:00 Test Item Value Reference Range Interpretation Comments Monocytes # (test code 0.5 See_Comment [Aut omated message] The = Monocytes #) system which generated this result tra nsmitted reference range : <=0.8. The reference r pauline was not used to int erpret this result as normal/abnormal . [facility] CenterIndtjvgRFPEZBMCYV4771-03-80 19:32:00 Test Item Value Reference Range Interpretation Comments Eosinophils # (test code 0.1 See_Comment [A utomated message] The = Eosinophils #) system whic h generated this result tra nsmitted reference range : <=0.5. The reference r pauline was not used to int erpret this result as normal/abnormal . [facility] AND [id number] 19:32:00 Test Item Value Reference Range Interpretation Comments UA Color (test code = Light Yellow UA Color) *NA*(10/20/21 1:32 PM) [facility] AND [id number] 19:32:00 Test Item Value Reference Range Interpretation Comments UA Turbidity (test code = Clear (10/20/21 1:32 UA Turbidity) PM) [facility] AND [id number] 19:32:00 Test Item Value Reference Range Interpretation Comments UA Spec Grav (test code = UA Spec 1.012 1 Grav) [facility] AND [id number] 19:32:00 Test Item Value Reference Range Interpretation Comments UA pH (test code = UA pH) 8.0 1 5.0-8.0 [facility] AND [id number] 19:32:00 Test Item Value Reference Range Interpretation Comments UA Protein (test code Negative (10/20/21 1:32 = UA Protein) PM) [facility] AND [id number] 19:32:00 Test Item Value Reference Range Interpretation Comments UA Glucose (test code Negative *NA*(10/20/21 = UA Glucose) 1:32 PM) [facility] AND [id number] 19:32:00 Test Item Value Reference Range Interpretation Comments UA Ketones (test code Negative *NA*(10/20/21 = UA Ketones) 1:32 PM) [facility] AND [id number] 19:32:00 Test Item Value Reference Range Interpretation Comments UA Bili (test code = Negative *NA*(10/20/21 UA Bili) 1:32 PM) [facility] AND [id number] 19:32:00 Test Item Value Reference Range Interpretation Comments UA Blood (test code = Negative (10/20/21 1:32 UA Blood) PM) [facility] AND [id number] 19:32:00 Test Item Value Reference Range Interpretation Comments UA Urobilinogen (test code = UA <=1.0 mg/dL 0.1-1.0 Urobilinogen) [facility] AND [id number] 19:32:00 Test Item Value Reference Range Interpretation Comments UA Nitrite (test code Negative (10/20/21 1:32 = UA Nitrite) PM) [facility] AND [id number] 19:32:00 Test Item Value Reference Range Interpretation Comments UA Leuk Est (test code Trace *ABN*(10/20/21 = UA Leuk Est) 1:32 PM) [facility] AND [id number] 19:32:00 Test Item Value Reference Range Interpretation Comments UA Sq Epi (test code = UA Sq Occasional /LPF Epi) [facility] AND [id number] 19:32:00 Test Item Value Reference Range Interpretation Comments UA WBC (test code = 2 See_Comment [Automa cindy message] The UA WBC) system which ge nerated this result transmit cindy reference range : <=5. The reference range was not used to interpr et this result as jonn l/abnormal. [facility] AND [id number] 19:32:00 Test Item Value Reference Range Interpretation Comments UA RBC (test code = no gt See_Comment [Automa cindy message] The UA RBC) system which ge nerated this result transmit cindy reference range : <=2. The reference range was not used to interpr et this result as jonn l/abnormal. [facility] AND [id number] 19:32:00 Test Item Value Reference Range Interpretation Comments UA Mucus (test code = UA Mucus) Few /LPF [facility] [employer] BANK [id number] 19:32:00 Test Item Value Reference Range Interpretation Comments ABO/Rh (test code = ABO/Rh) A POS [facility] [employer] [id number] 19:32:00 Test Item Value Reference Range Interpretation Comments BUN (test code = BUN) 5 7-22 [facility] [employer] [id number] 19:32:00 Test Item Value Reference Range Interpretation Comments Creatinine Lvl (test code = Creatinine 0.36 0.50-1.40 Lvl) [facility] [employer] [id number] 19:32:00 Test Item Value Reference Range Interpretation Comments Glucose Lvl (test code = Glucose Lvl) 74 70-99 [facility] [id number] 19:32:00 Test Item Value Reference Range Interpretation Comments Sodium Lvl (test code = Sodium Lvl) 139 135-145 [facility] [id number] 19:32:00 Test Item Value Reference Range Interpretation Comments Potassium Lvl (test code = Potassium 3.0 3.5-5.1 Lvl) [facility] [id number] 19:32:00 Test Item Value Reference Range Interpretation Comments Chloride Lvl (test code = Chloride Lvl) 108 95-109 [facility] [id number] 19:32:00 Test Item Value Reference Range Interpretation Comments CO2 (test code = CO2) 26 24-32 [facility] [facility] [id number] 19:32:00 Test Item Value Reference Range Interpretation Comments AGAP (test code = AGAP) 8.0 10.0-20.0 [facility] [id number] 19:32:00 Test Item Value Reference Range Interpretation Comments Calcium Lvl (test code = Calcium Lvl) 8.6 8.5-10.5 [facility] [id number] 19:32:00 Test Item Value Reference Range Interpretation Comments B/C Ratio (test code = B/C Ratio) 14 1 6-25 [facility] [id number] 19:32:00 Test Item Value Reference Range Interpretation Comments Total Protein (test code = Total 7.1 6.4-8.4 Protein) [facility] [id number] 19:32:00 Test Item Value Reference Range Interpretation Comments Albumin Lvl (test code = Albumin Lvl) 3.1 3.5-5.0 [facility] [id number] 19:32:00 Test Item Value Reference Range Interpretation Comments Globulin (test code = Globulin) 4.0 2.7-4.2 [facility] [id number] 19:32:00 Test Item Value Reference Range Interpretation Comments A/G Ratio (test code = A/G Ratio) 0.8 1 0.7-1.6 [facility] [id number] 19:32:00 Test Item Value Reference Range Interpretation Comments ALT (test code = ALT) 10 See_Comment [Auto mated message] The system which ge nerated this result transmit cindy reference range : <=65. The reference range was not used to interpr et this result as jonn l/abnormal. [facility] [id number] 19:32:00 Test Item Value Reference Range Interpretation Comments AST (test code = AST) 10 See_Comment [Auto mated message] The system which ge nerated this result transmit cindy reference range : <=37. The reference range was not used to interpr et this result as jonn l/abnormal. [facility] [id number] 19:32:00 Test Item Value Reference Range Interpretation Comments Alk Phos (test code = Alk Phos) 50 43-86 [facility] [id number] 19:32:00 Test Item Value Reference Range Interpretation Comments Bili Total (test code = Bili Total) 0.2 0.2-1.3 [facility] CenterannCHEM [id number] 19:32:00 Test Item Value Reference Range Interpretation Comments eGFR (test code = eGFR) 158 [id number] 19:32:00 Test Item Value Reference Range Interpretation Comments hCG Tot (test code = hCG Tot) [address] [facility] [id number] 19:32:00 Test Item Value Reference Range Interpretation Comments WBC (test code = WBC) 6.7 3.7-10.4 [facility] [id number] 19:32:00 Test Item Value Reference Range Interpretation Comments RBC (test code = RBC) 3.96 4.20-5.40 [facility] [id number] 19:32:00 Test Item Value Reference Range Interpretation Comments Hgb (test code = Hgb) 10.8 12.0-16.0 [facility] [id number] 19:32:00 Test Item Value Reference Range Interpretation Comments Hct (test code = Hct) 32.4 36.0-48.0 [facility] [id number] 19:32:00 Test Item Value Reference Range Interpretation Comments MCV (test code = MCV) 82.0 80.0-98.0 [facility] [id number] 19:32:00 Test Item Value Reference Range Interpretation Comments MCH (test code = MCH) 27.2 pg 27.0-31.0 [facility] [id number] 19:32:00 Test Item Value Reference Range Interpretation Comments MCHC (test code = MCHC) 33.2 32.0-36.0 [facility] [id number] 19:32:00 Test Item Value Reference Range Interpretation Comments RDW (test code = RDW) 15.8 11.5-14.5 [facility], [id number] 00:00:00 Test Item Value Reference Range Interpretation Comments RHEUMATOID FACTOR, QUANT (test code <10 IU/ML = 3502) RHEUMATOID FACTOR, [id number] 00:00:00 Test Item Value Reference Range Interpretation Comments RHEUMATOID FACTOR, QUANT (test code <10 IU/ML = 3502) C-REACTIVE [id number] 00:00:00 Test Item Value Reference Range Interpretation Comments C-REACTIVE PROTEIN (test code = 0.5 MG/DL 3513) C-REACTIVE [id number] 00:00:00 Test Item Value Reference Range Interpretation Comments C-REACTIVE PROTEIN (test code = 0.5 MG/DL 3513) TRISH (ANTI-NUCLEAR AB) WITH REFLEX [id number] 00:00:00 Test Item Value Reference Range Interpretation Comments ANTI-NUCLEAR ANTIBODIES (test code = NEGATIVE 3506) TRISH (ANTI-NUCLEAR AB) WITH REFLEX [id number] 00:00:00 Test Item Value Reference Range Interpretation Comments ANTI-NUCLEAR ANTIBODIES (test code = NEGATIVE 3506) SEDIMENTATION [id number] 00:00:00 Test Item Value Reference Range Interpretation Comments SEDIMENTATION RATE (test code = 24 MM/HOUR 1017) SEDIMENTATION [id number] 00:00:00 Test Item Value Reference Range Interpretation Comments SEDIMENTATION RATE (test code = 24 MM/HOUR 1017) URIC [id number] 00:00:00 Test Item Value Reference Range Interpretation Comments URIC ACID (test code = 2233) 4.4 MG/DL URIC [id number] 00:00:00 Test Item Value Reference Range Interpretation Comments URIC ACID (test code = 2233) 4.4 MG/DL VITAMIN D, 25 [id number] 00:00:00 Test Item Value Reference Range Interpretation Comments VITAMIN D, 25 OH (test code = 4958) 45 NG/ML VITAMIN D, 25 [id number] 00:00:00 Test Item Value Reference Range Interpretation Comments VITAMIN D, 25 OH (test code = 4958) 45 NG/ML RHEUMATOID FACTOR, [id number] 00:00:00 Test Item Value Reference Range Interpretation Comments RHEUMATOID FACTOR, QUANT (test code <10 IU/ML = 3502)
[2023-01-03 23:06] LABS: Absolute Lymphocytes (CBC) 1.5 K/uL (0.7-4.9); Hematocrit 30.9 % (36.0-45.0); Lymphocytes % 15.8 % (15.3-44.8); MPV 7.4 fL (7.6-11.3); RBC Red Blood Cell Count 4.35 M/uL (3.86-4.86)
[2023-01-03 23:10] LABS: Protime INR 1.33
[2023-01-03] MEDS ORDERED: NA CHLORIDE 0.9% 1,000 ML ONE (23:11)
[2023-01-03] MEDS ORDERED: FENTANYL CITR 100 MCG/2 ML ONE (23:11)
[2023-01-03] MEDS ORDERED: ACETAMINOPHEN 500 MG TAB ONE (23:11)
[2023-01-03 23:15] LABS: Urine Blood Negative (Negative); Urine Glucose Negative (Negative); Urine Protein Negative (Negative); Urine pH 8.5 (5.0-7.0)
[2023-01-03 23:23] LABS: Albumin 3.2 g/dL (3.4-5.0); Bilirubin Total 0.3 mg/dL (0.2-1.0); Potassium 3.8 mmol/L (3.5-5.1); Protein, Total 9.1 g/dL (6.4-8.2)
[2023-01-03 23:35] LABS: Urine Bacteria <20 /HPF (<20); Urine Mucus Slight /HPF (None Seen); Urine RBC <5 /HPF (None Seen)
[2023-01-03] MEDS ORDERED: LIDOCAINE 1% MPF 5 ML VIAL ONE ×2 (23:53→23:58)
[2023-01-03] MEDS ORDERED: BUPIVACAINE 0.5% PF 10 ML VIAL ONE (23:53)
[2023-01-03] MEDS ORDERED: CEFTRIAXONE 1000 MG/VIAL ONE (23:53)
[2023-01-03] MEDS ORDERED: CLINDAMYCIN 900MG/D5W 900 MG/50 ML IVPB IV ONE (23:53)
[2023-01-04] MEDS ORDERED: FENTANYL CITR 100 MCG/2 ML ONE (00:52)
[2023-01-04] MEDS ORDERED: NA CHLORIDE 0.9% 1,000 ML ONE (01:16)
--- NOTE | 2023-01-04 01:42 | ER ---
Nurse's Notes [facility] Name: Michelle Aguilar Age: 17 yrs Sex: Female : 2005 Arrival Date: 01/03/2023 Time: 21:57 Bed 2 Private MD: Diagnosis: Abscess of Bartholin's gland-right Presentation: 01/03 22:29 Chief complaint: Patient states: i have a Bartholin's cyst and now i have fever, chills lg3 and abdominal pain. Coronavirus screen: Client denies travel out of the [place] in the last 14 days. At this time, the client does not indicate any symptoms associated with coronavirus-19. Ebola Screen: No symptoms or risks identified at this time. Initial Sepsis Screen: Does the patient meet any 2 criteria? Temp <36.0*C (96.8*F)) or > 38.3*C (100.9*F). HR > 90 bpm. Yes Does the patient have a suspected source of infection? Yes: Skin breakdown/wound If YES to both, name of provider notified: Mariano KING. Risk Assessment: Do you want to hurt yourself or someone else? Patient reports no desire to harm self or others. Onset of symptoms was January 03, 2023. 22:29 Method Of Arrival: Ambulatory lg3 22:29 Acuity: SERGE 3 lg3 Triage Assessment: 22:30 General: Appears in no apparent distress. uncomfortable, Behavior is calm, cooperative. lg3 Pain: Complains of pain in groin. EENT: No deficits noted. No signs and/or symptoms were reported regarding the EENT system. Neuro: No deficits noted. Gallardo Agitation-Sedation Scale (RASS): 0 - Alert and Calm Level of Consciousness is awake, alert, obeys commands, Oriented to person, place, time, situation. Cardiovascular: No deficits noted. Respiratory: No deficits noted. GI: No deficits noted. No signs and/or symptoms were reported involving the gastrointestinal system. : No deficits noted. Derm: Reports pain. Musculoskeletal: No deficits noted. 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 - Social history:: Smoking status: Reported history of juuling and/or vaping. Patient/guardian denies using alcohol, street drugs. Screenin:51 [facility] ED Fall Risk Assessment (Adult) Score/Fall Risk Level 0 - 2 = Low Risk. Abuse as6 screen: Denies threats or abuse. Denies injuries from another. Nutritional screening: No deficits noted. Tuberculosis screening: No symptoms or risk factors identified. Vital Signs: 22:29 BP 114 / 82; Pulse 131; Resp 17 S; Temp 100.9; Pulse Ox 100% ; Weight 79.38 kg (R); lg3 Height 5 ft. 4 in. (162.56 cm) (R); Pain 10/10; 23:30 BP 110 / 55; Pulse 123; Resp 17 S; Pulse Ox 98% on R/A; as6 0304 00:30 BP 114 / 65; Pulse 105; Resp 19 S; Pulse Ox 98% on R/A; as6 01:36 BP 121 / 73; Pulse 106; Resp 20 S; Temp 99.7(O); Pulse Ox 96% on R/A; as6 01/03 22:29 Body Mass Index 30.04 (79.38 kg, 162.56 cm) lg3 ED Course: 01/03 21:57 Patient arrived in ED. jj6 22:07 Mariano Bower PA is PHCP. cp 22:07 Murali Ta MD is Attending Physician. cp 22:30 Triage completed. lg3 22:30 Arm band placed on right wrist. lg3 22:43 Ryan Boucher, CHRISTINE is Primary Nurse. as6 23:19 Missed attempt(s): 22 gauge in left antecubital area. Bleeding controlled, band aid mb9 applied, catheter tip intact. 23:43 Placed in gown. Bed in low position. Call light in reach. Side rails up X 1. as6 23:43 Inserted saline lock: 20 gauge in left antecubital area, using aseptic technique. Blood as6 collected. 01/04 01:56 Assist provider with I \T\ D: of an abscess on right Bartholin's gland Set up I\T\D tray. as 6 Performed by Mariano KING Culture sent to lab. Patient tolerated well. IV discontinued, intact, bleeding controlled, No redness/swelling at site. Pressure dressing applied. Administered Medications: 01/03 22:36 CANCELLED (Physician Discretion): NS 0.9% 1000 ml IV at 1 bolus Per protocol; 1000 mL cp bolus 23:30 Drug: Acetaminophen 1000 mg Route: PO; 01/04 02:00 Follow up: Response: No adverse reaction; Temperature is decreased 01/03 23:35 Drug: NS 0.9% 1000 ml Route: IV; Rate: 1 bolus; Site: left antecubital; 01/04 01:59 Follow up: Response: No adverse reaction; IV Status: Completed infusion; IV Intake: as6 1000ml 01/03 23:35 Drug: fentaNYL (PF) 25 mcg Route: IVP; Site: left antecubital; 01/04 01:59 Follow up: Response: No adverse reaction 01/03 23:55 Drug: Clindamycin 900 mg Route: IVPB; Infused Over: 30 mins; Site: left antecubital; 01/04 01:59 Follow up: Response: No adverse reaction; IV Status: Completed infusion; IV Intake: 72vnpp3 01/03 23:55 Drug: Rocephin (cefTRIAXone) 1 grams Route: IV; Rate: calculated rate; Site: left as6 antecubital; 01/04 01:58 Follow up: Response: No adverse reaction; IV Status: Completed infusion; IV Intake: 03pmjp5 01:00 Drug: fentaNYL (PF) 25 mcg Route: IVP; Site: left antecubital; 01:58 Follow up: Response: No adverse reaction 01:03 Drug: Lidocaine (1 %) 10 ml {Note: administered by provider.} Volume: 20 ml; Route: as6 Infiltration; 59 Follow up: Response: No adverse reaction 01:03 Drug: Marcaine (bupivacaine) (0.5 %) 10 ml {Note: administered by provider.} Volume: 10 as6 ml; Route: Infiltration; 59 Follow up: Response: No adverse reaction as6 01:14 Drug: NS 0.9% 1000 ml Route: IV; Rate: 1 bolus; Site: left antecubital; as6 01:58 Follow up: Response: No adverse reaction as6 01:58 Follow up: Response: No adverse reaction; IV Status: Completed infusion; IV Intake: as6 1000ml Medication: 01/03 23:43 VIS not applicable for this client. as6 Intake: 01/04 01:58 IV: 1000ml; Total: 1000ml. as6 01:58 IV: 10ml; Total: 1010ml. as6 01:59 IV: 50ml; Total: 1060ml. as6 01:59 IV: 1000ml; Total: 2060ml. as6 Outcome: 01:42 Discharge ordered by MD. cp 01:56 Discharged to home ambulatory. as6 01:56 Condition: stable 01:56 Discharge instructions given to patient, Instructed on discharge instructions, follow up and referral plans. medication usage, Demonstrated understanding of instructions, follow-up care, medications, Prescriptions given X 4. 02:00 Patient left the ED. as6 Signatures: Mariano Bower PA PA cp Gibson, Lacie, RN RN lg3 Paulette Haley jj6 Ryan Boucher RN RN as6 Corinne Harris RN RN mb9 Corrections: (The following items were deleted from the chart) 01/03 22:33 22:29 Chief complaint: Patient states: i have a Bartholin's cyst and now i have fever lg3 and chills lg3 01/04 01:59 01:58 Response: No adverse reaction; IV Status: Completed infusion; IV Intake: 1000ml as6 as6
--- NOTE | 2023-01-04 01:42 | EDPHYS ---
Physician Documentation [facility] Name: Michelle Aguilar Age: 17 yrs Sex: Female : 2005 Arrival Date: 01/03/2023 Time: 21:57 Bed 2 Private MD: ED Physician Murali Ta HPI: 01/03 22:30 This 17 yrs old Female presents to ER via Unassigned with complaints of Abscess, Fever. cp 22:30 The patient presents with an abscess of the right side vagina. cp 22:30 Description: erythematous, swollen. Onset: The symptoms/episode began/occurred cp gradually, and became worse today. Associated signs and symptoms: Pertinent positives: erythema, fever, swelling, Pertinent negatives: discharge, drainage. Severity of symptoms: in the emergency department the symptoms are unchanged, despite home interventions. 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 - Social history:: Smoking status: Reported history of juuling and/or vaping. Patient/guardian denies using alcohol, street drugs. ROS: 22:35 Constitutional: Positive for fever, Negative for poor PO intake. cp 22:35 Eyes: Negative for injury, pain, redness, and discharge. cp 22:35 ENT: Negative for drainage from ear(s), ear pain, sore throat, difficulty swallowing, difficulty handling secretions. 22:35 Cardiovascular: Negative for chest pain. cp 22:35 Respiratory: Negative for cough, shortness of breath, wheezing. 22:35 Abdomen/GI: Positive for abdominal pain, Negative for vomiting, diarrhea, constipation. 22:35 : Negative for urinary symptoms, vaginal bleeding, vaginal discharge. 22:35 Skin: Positive for abscess, of the right side of vagina. 22:35 Neuro: Negative for altered mental status, dizziness, headache, weakness. 22:35 All other systems are negative. Exam: 22:40 Constitutional: The patient appears in no acute distress, alert, awake, non-toxic, well cp developed, well nourished, uncomfortable. 22:40 Head/Face: Normocephalic, atraumatic. cp 22:40 Eyes: Periorbital structures: appear normal, Conjunctiva: normal, no exudate, no injection, Sclera: no appreciated abnormality, Lids and lashes: appear normal, bilaterally. 22:40 ENT: External ear(s): are unremarkable, Nose: is normal, Mouth: Lips: moist, Oral mucosa: moist, Posterior pharynx: is normal, airway is patent, no erythema, no exudate. 22:40 Neck: ROM/movement: is normal, is supple, without pain, no range of motions limitations. 22:40 Chest/axilla: Inspection: normal. 22:40 Cardiovascular: Rate: tachycardic, Rhythm: regular. 22:40 Respiratory: the patient does not display signs of respiratory distress, Respirations: normal, no use of accessory muscles, no retractions, labored breathing, is not present, Breath sounds: are clear throughout, no decreased breath sounds, no stridor, no wheezing. 22:40 Abdomen/GI: Inspection: abdomen appears normal, Bowel sounds: active, all quadrants, Palpation: soft, in all quadrants, mild abdominal tenderness, in the suprapubic area, rebound tenderness, is not appreciated, involuntary guarding, is not appreciated. 22:40 : Pelvic Exam: External exam: Bartholin's cyst present, erythema is noted, discharge, is not appreciated, the nurse was present for the exam. 22:40 Neuro: Orientation: to person, place \T\ time. Mentation: is normal, Gait: is steady. 01/04 00:05 ECG was reviewed by the Attending Physician. cp Vital Signs: 01/03 22:29 BP 114 / 82; Pulse 131; Resp 17 S; Temp 100.9; Pulse Ox 100% ; Weight 79.38 kg (R); lg3 Height 5 ft. 4 in. (162.56 cm) (R); Pain 10/10; 23:30 BP 110 / 55; Pulse 123; Resp 17 S; Pulse Ox 98% on R/A; as6 01/04 00:30 BP 114 / 65; Pulse 105; Resp 19 S; Pulse Ox 98% on R/A; as6 01:36 BP 121 / 73; Pulse 106; Resp 20 S; Temp 99.7(O); Pulse Ox 96% on R/A; as6 01/03 22:29 Body Mass Index 30.04 (79.38 kg, 162.56 cm) lg3 Procedures: 01:35 I \T\ D: Incision and drainage was performed for an abscess of the right Bartholin's cp gland. Prepped with Betadine, Anesthetized with 5 ccs of mixture 1% lidocaine w/o epi and 0.5% marcaine. Incised with #11 blade. Drained small amount purulent fluid. bloody fluid. Packed with iodoform gauze, Dressing: sterile 4x4 gauze, the patient tolerated the procedure well. MDM: 01/03 22:34 Patient medically screened. cp 23:00 Differential diagnosis: abscess, cellulitis, sepsis, UTI. cp 01/04 01:40 Data reviewed: vital signs, nurses notes, lab test result(s). cp 01:40 Consideration of Admission/Observation Escalation of care including cp admission/observation considered. I considered the following discharge prescriptions or medication management in the emergency department Medications were administered in the Emergency Department. See MAR. Test considered but Not performed: CT: abdomen/pelvis. Counseling: I had a detailed discussion with the patient and/or guardian regarding: the historical points, exam findings, and any diagnostic results supporting the discharge/admit diagnosis, lab results, radiology results, the need for outpatient follow up, an OB/Gyne specialist, to return to the emergency department if symptoms worsen or persist or if there are any questions or concerns that arise at home. Response to treatment: the patient's symptoms have markedly improved after treatment, and as a result, I will discharge patient. 01/03 22:36 Order name: Blood Culture Adult (2) cp 01/03 22:36 Order name: CBC with Diff cp 01/03 22:36 Order name: CMP cp 01/03 22:36 Order name: Lactate w/ 2H reflex if indic. cp 01/03 22:36 Order name: Protime (+inr) cp 01/03 22:36 Order name: Ptt, Activated cp 01/03 22:36 Order name: Urine Microscopic Only cp 01/03 22:36 Order name: EKG; Complete Time: 22:58 cp 01/03 22:36 Order name: Accucheck; Complete Time: 23:43 cp 01/03 22:36 Order name: Cardiac monitoring; Complete Time: 00:03 cp 01/03 22:36 Order name: EKG - Nurse/Tech; Complete Time: 00:03 cp 01/03 22:36 Order name: IV Saline Lock - Large Bore; Complete Time: 23:42 cp 01/03 22:36 Order name: Labs collected and sent; Complete Time: 23:05 cp 01/03 22:36 Order name: O2 Per Protocol; Complete Time: 23:42 cp 01/03 22:36 Order name: O2 Sat Monitoring; Complete Time: 23:42 cp 01/03 22:36 Order name: Urine Dipstick-Ancillary (obtain specimen); Complete Time: 23:22 cp 01/03 22:36 Order name: Urine Test (obtain specimen); Complete Time: 23:23 cp 01/03 22:36 Order name: Vital Signs; Complete Time: 22:48 cp 01/03 22:36 Order name: Pelvic Exam Setup; Complete Time: 22:48 cp 01/03 23:06 Order name: CBC with Automated Diff; Complete Time: 23:29 EDMS 01/03 23:29 Interpretation: Normal except: HGB 9.7; HCT 30.9; MCV 71.0; MCH 22.2; MCHC 31.3; MPV cp 7.4; ROSANGELA% 76.9. 01/03 23:10 Order name: Protime (+INR); Complete Time: 23:29 EDMS 01/03 23:10 Order name: PTT, Activated Partial Thromb; Complete Time: 23:29 EDMS 01/03 23:15 Order name: Urine Dipstick-Ancillary; Complete Time: 23:29 EDMS 01/03 23:23 Order name: Urine --Ancillary (enter results) wm 01/03 23:24 Order name: Comprehensive Metabolic Panel; Complete Time: 23:29 EDMS 01/03 23:24 Order name: Lactate w/ 2H reflex if indic.; Complete Time: 23:29 EDMS 01/03 23:27 Order name: Urine --Ancillary; Complete Time: 23:29 EDMS 01/03 23:31 Order name: I\T\D Setup; Complete Time: 00:02 cp 01/03 23:36 Order name: Urine Microscopic Only; Complete Time: 23:37 EDMS 01/03 23:37 Interpretation: Reviewed. cp 01/03 23:38 Order name: Wound Culture cp 01/04 01:25 Order name: Vital Signs: please update to include temp; Complete Time: 01:37 cp EC:05 Rate is 117 beats/min. Rhythm is regular. LA interval is normal. QRS interval is cp normal. QT interval is normal. T waves are Inverted in lead aVR. Interpreted by me. Reviewed by me. Administered Medications: 01/03 22:36 CANCELLED (Physician Discretion): NS 0.9% 1000 ml IV at 1 bolus Per protocol; 1000 mL cp bolus 23:30 Drug: Acetaminophen 1000 mg Route: PO; 01/04 02:00 Follow up: Response: No adverse reaction; Temperature is decreased 01/03 23:35 Drug: NS 0.9% 1000 ml Route: IV; Rate: 1 bolus; Site: left antecubital; 01/04 01:59 Follow up: Response: No adverse reaction; IV Status: Completed infusion; IV Intake: as6 1000ml 01/03 23:35 Drug: fentaNYL (PF) 25 mcg Route: IVP; Site: left antecubital; 01/04 01:59 Follow up: Response: No adverse reaction 01/03 23:55 Drug: Clindamycin 900 mg Route: IVPB; Infused Over: 30 mins; Site: left antecubital; 01/04 01:59 Follow up: Response: No adverse reaction; IV Status: Completed infusion; IV Intake: 25waet6 01/03 23:55 Drug: Rocephin (cefTRIAXone) 1 grams Route: IV; Rate: calculated rate; Site: left as6 antecubital; 01/04 01:58 Follow up: Response: No adverse reaction; IV Status: Completed infusion; IV Intake: 44hsnq1 01:00 Drug: fentaNYL (PF) 25 mcg Route: IVP; Site: left antecubital; 01:58 Follow up: Response: No adverse reaction 01:03 Drug: Lidocaine (1 %) 10 ml {Note: administered by provider.} Volume: 20 ml; Route: as6 Infiltration; 01:59 Follow up: Response: No adverse reaction 01:03 Drug: Marcaine (bupivacaine) (0.5 %) 10 ml {Note: administered by provider.} Volume: 10 as6 ml; Route: Infiltration; 01:59 Follow up: Response: No adverse reaction 01:14 Drug: NS 0.9% 1000 ml Route: IV; Rate: 1 bolus; Site: left antecubital; 01:58 Follow up: Response: No adverse reaction 01:58 Follow up: Response: No adverse reaction; IV Status: Completed infusion; IV Intake: as6 1000ml Disposition Summary: 01/04/23 01:42 Discharge Ordered Location: Home cp Problem: new cp Symptoms: have improved cp Condition: Stable cp Diagnosis - Abscess of Bartholin's gland - right cp Followup: cp - With: Private Physician - When: 1 week - Reason: Recheck today's complaints Discharge Instructions: - Discharge Summary Sheet cp - Bartholin's Cyst cp - Incision and Drainage cp Forms: - Medication Reconciliation Form cp - Thank You Letter cp - Antibiotic Education cp - Prescription Opioid Use cp Prescriptions: - cefixime 200 mg Oral tablet,chewable - chew 1 tablet by ORAL route every 12 hours for 10 days; 20 tablet; Refills: 0, cp Product Selection Permitted - Clindamycin HCl 300 mg Oral Capsule - take 1 capsule by ORAL route every 6 hours for 10 days; 40 capsule; Refills: 0, cp Product Selection Permitted - Ibuprofen 800 mg Oral Tablet - take 1 tablet by ORAL route every 8 hours As needed take with food; 30 tablet; cp Refills: 0, Product Selection Permitted - Tramadol 50 mg Oral Tablet - take 1 tablet by ORAL route every 8 hours as needed; 12 tablet; Refills: 0, cp Product Selection Permitted Addendum: 01/06/2023 02:28 Co-signature as Attending Physician, Murali Ta MD I agree with the assessment s p4 and plan of care. I reviewed the patient's care provided by the Advanced Practice Provider and agree with the diagnosis and treatment plan. Signatures: Dispatcher [employer] EDVT Mariano Bower PA PA cp Gibson, Lacie, CHRISTINE RN lg3 Ryan Boucher RN RN as6 Murali Ta MD MD sp4 Corrections: (The following items were deleted from the chart) 01/03 22:36 22:36 NS 0.9% 1000 ml IV at 1 bolus Per protocol; 1000 mL bolus ordered. cp cp
[2023-01-04 02:08] VITALS: BP 121/73; TEMP 99.7; O2SAT 96
--- NOTE | 2023-01-06 16:46 | EKG ---
Test Date: 2023-01-04 Test Time: 00:01:17 [employer] Manager: MEASUREMENT RESULTS: Intervals: Rate: 117 MN: 156 QRSD: 88 QT: 304 QTc: 424 [place]: P: 67 MN: 156 QRS: 70 T: 23 INTERPRETIVE STATEMENTS: Sinus tachycardia Otherwise normal ECG Compared to ECG 09/15/2013 21:32:26 Sinus rhythm no longer present Electronically Signed On 01-06-23 16:39:35 ORDER DEPARTMENT SUPERVISOR by Nasir Grimaldo
== END 2023-01-04 02:00 | disposition home or self-care (01) ==
LOC: ER 21:52
PROC: 0U9LXZZ Drainage of Vestibular Gland, External Approach (ICD-10-PCS; principal; 2023-01-04)
DX: N75.1 Abscess of Bartholin's gland (principal); Z88.1 Allergy status to other antibiotic agents; Z88.2 Allergy status to sulfonamides
CPT/HCPCS: 96365; 96368; 93005; 87040 ×2; 87088; 87070; 85025; 87086; 36415; 87205; 81025; 85610; 83605; 85730; 80053; 96375; 99284; 96366; 56420; J3010 ×2; J2001 ×2; J7030 ×2; 81003; 81015